=== PATIENT | female | born 1990 | race American Indian/Alaskan Native ===

== ENCOUNTER 2017-03-17 11:59 | Emergency (ER) | payer MEDICAID ==
[2017-03-17 12:26] VITALS: BP 135/76
[2017-03-17 12:52] LABS: Basophils % (Auto) 0.8 % (0.0-1.8); Eosinophils % (Auto) 3.9 % (0.0-4.3); Hematocrit 39.2 % (30.3-42.9); Hemoglobin 12.7 gm/dl (10.1-14.3); Mean Corpuscular HGB Conc 32 % (30-34); Mean Corpuscular Hemoglobin 28 pg (28-32); Mean Corpuscular Volume 86 fl (79-97); Platelet Count 291 K/mm3 (140-440); Red Blood Count 4.54 M/mm3 (3.65-5.03); Red Cell Distribution Width 13.3 % (13.2-15.2)
[2017-03-17 13:12] LABS: Alanine Aminotransferase 10 units/L (7-56); Albumin 3.9 g/dL (3.9-5); Albumin/Globulin Ratio 1.1 %; Alkaline Phosphatase 38 units/L (35-129); Anion Gap 17 mmol/L; Blood Urea Nitrogen 6 mg/dL (7-17); Calcium 8.8 mg/dL (8.4-10.2); Carbon Dioxide 23 mmol/L (22-30); Glucose 81 mg/dL (65-100); Lipase 39 units/L (13-60); Potassium 3.8 mmol/L (3.6-5.0); Sodium 137 mmol/L (137-145); Total Protein 7.3 g/dL (6.3-8.2)
[2017-03-17 13:44] LABS: Bacteria,Urine 1+ /HPF (Negative); Bilirubin,Urine NEG (Negative); Blood,Urine NEG (Negative); Ketones,Urine TR mg/dL (Negative); Leukocyte Esterase,Urine SM (Negative); Mucus,Urine FEW /HPF; Nitrite,Urine POS (Negative); Protein,Urine <15 mg/dL mg/dL (Negative); Urobilinogen,Urine < 2.0 mg/dL (<2.0)
--- NOTE | 2017-03-17 15:33 | Emergency Department Report ---
ED General Adult HPI - General Chief complaint: Abdominal Pain Stated complaint: ABD PAIN Time Seen by Provider: 03/17/17 14:32 Source: patient Mode of arrival: Ambulatory Limitations: No Limitations - History of Present Illness Initial comments: This is a 26-year-old female that presents here today stating "I am here only to get a test". Patient was seen by kelly nurse and she stated to fatimah nurse c/o abdominal pain. Patient stated she just wanted to see a provider for a test. Patient denies any abdominal pain, CP, SOB, numbness, tingling, fever, dysuria, polyuria, foul odor urine, vaginal discharge , vaginal bleeding, chills, headache. Patient does agree to nausea but denies vomiting. Associated symptoms of nausea includes 3-4 days. Patient stated LMP was 02/02/2017. Denies any vaginal bleeding or discharge. Denies significant PMH. MD Complaint: test with nausea -: Gradual, days(s) (3-4) Severity scale (0 -10): 0 Associated Symptoms: denies other symptoms. denies: confusion, chest pain, cough, diaphoresis, fever/chills, headaches, loss of appetite, malaise, nausea/ vomiting, rash, seizure, shortness of breath, syncope, weakness Treatments Prior to Arrival: none - Related Data Home Medications Medication Instructions Recorded Confirmed Last Taken Vitamin D3/Folic Acid [Dermacinrx 5,000 unit PO QDAY 07/26/16 07/26/16 Unknown Purefolix Tablet] risperiDONE [RisperDAL] 0.25 mg PO BID 07/26/16 07/26/16 Unknown traZODone [Desyrel] 50 mg PO QHS 07/26/16 07/26/16 Unknown Previous Rx's Medication Instructions Recorded Last Taken Type Vit W-Ca,Fe,FA(<1 mg) 1 each PO QDAY #30 tablet 07/26/16 Unknown Rx [ Vitamins] Nitrofurantoin Shelby/M-Cryst 100 mg PO Q12HR #10 capsule 03/17/17 Unknown Rx [Macrobid CAP] Allergies Allergy/AdvReac Type Severity Reaction Status Date / Time No Known Allergies Allergy Verified 07/26/16 07:51 ED Review of Systems ROS: Stated complaint: ABD PAIN Other details as noted in HPI Constitutional: denies: chills, fever Eyes: denies: eye pain, eye discharge, vision change ENT: denies: ear pain, throat pain Respiratory: denies: cough, shortness of breath, wheezing Cardiovascular: denies: chest pain, palpitations Endocrine: no symptoms reported Gastrointestinal: denies: abdominal pain, nausea, diarrhea Genitourinary: denies: urgency, dysuria, discharge Musculoskeletal: denies: back pain, joint swelling, arthralgia Skin: denies: rash, lesions Neurological: denies: headache, weakness, paresthesias Psychiatric: denies: anxiety, depression Hematological/Lymphatic: denies: easy bleeding, easy bruising ED Past Medical Hx - Past Medical History Previous Medical History?: Yes Hx Psychiatric Treatment: Yes (BIPOLAR / SCHIZOPHRENIA / DEPRESSION) - Surgical History Past Surgical History?: No - Social History Smoking Status: Current Every Day Smoker Substance Use Type: Alcohol, Marijuana - Medications Home Medications: Home Medications Medication Instructions Recorded Confirmed Last Taken Type Vit W-Ca,Fe,FA(<1 mg) 1 each PO QDAY #30 tablet 07/26/16 Unknown Rx [ Vitamins] Vitamin D3/Folic Acid [Dermacinrx 5,000 unit PO QDAY 07/26/16 07/26/16 Unknown History Purefolix Tablet] risperiDONE [RisperDAL] 0.25 mg PO BID 07/26/16 07/26/16 Unknown History traZODone [Desyrel] 50 mg PO QHS 07/26/16 07/26/16 Unknown History Nitrofurantoin Shelby/M-Cryst 100 mg PO Q12HR #10 capsule 03/17/17 Unknown Rx [Macrobid CAP] ED Physical Exam - General Limitations: No Limitations General appearance: alert, in no apparent distress - Head Head exam: Present: atraumatic, normocephalic. Absent: normal inspection - Eye Eye exam: Present: normal appearance, PERRL, EOMI. Absent: scleral icterus, conjunctival injection, nystagmus, periorbital swelling, periorbital tenderness - ENT ENT exam: Present: normal exam, normal orophraynx, mucous membranes moist, TM's normal bilaterally, normal external ear exam - Neck Neck exam: Present: normal inspection, full ROM. Absent: tenderness, meningismus, lymphadenopathy, thyromegaly - Respiratory Respiratory exam: Present: normal lung sounds bilaterally. Absent: respiratory distress, wheezes, rales, rhonchi, stridor, chest wall tenderness, accessory muscle use, decreased breath sounds, prolonged expiratory - Cardiovascular Cardiovascular Exam: Present: regular rate, normal rhythm, normal heart sounds. Absent: bradycardia, tachycardia, irregular rhythm, systolic murmur, diastolic murmur, rubs, gallop - GI/Abdominal GI/Abdominal exam: Present: soft, normal bowel sounds. Absent: distended, tenderness, guarding, rebound, rigid, diminished bowel sounds, hyperactive bowel sounds, hypoactive bowel sounds, organomegaly, mass, bruit, pulsatile mass , hernia - Expanded GI/Abdominal Exam Expanded GI/Abdominal exam: Absent: psoas sign, obturator sign, heel tap sign, Sanchez's sign, Rovsing's sign, tenderness at Mcburney's Point, ascites - Extremities Exam Extremities exam: Present: normal inspection, full ROM, normal capillary refill. Absent: tenderness, pedal edema, joint swelling, calf tenderness - Back Exam Back exam: Present: normal inspection, full ROM. Absent: tenderness, CVA tenderness (R), CVA tenderness (L), muscle spasm, paraspinal tenderness, vertebral tenderness, rash noted - Neurological Exam Neurological exam: Present: alert, oriented X3, CN II-XII intact, normal gait, reflexes normal - Psychiatric Psychiatric exam: Present: normal affect, normal mood - Skin Skin exam: Present: warm, dry, intact, normal color. Absent: rash ED Course Vital Signs 03/17/17 12:21 Temperature 98.3 F Pulse Rate 84 Respiratory 20 Rate Blood Pressure 135/76 O2 Sat by Pulse 100 Oximetry - Reevaluation(s) Reevaluation #1: 03/17/17 15:43 Patient is with family member and laughing. No signs of distress noted. ED Medical Decision Making - Lab Data Result diagrams: 03/17/17 12:36 03/17/17 12:36 - Medical Decision Making Ed course: This is a 26-year-old female that presents for a test 1- after my interview with patient, Patient stated to me that she does not have abd pain or vomiting. She does have slight nausea that is intermittent and believes she is and only wants a test. 2- Prior to my interview, a CBC, BMP, UA, and pergnancy test has been obtained with normal findings. 3- Pt was instructed to f/u with her PCP in 3-5 days 4- at time time of discharge, the patient does not seem toxic or ill in appearance. No acute signs of distress noted. Patient agrees to discharge treatment plan of care. No further questions noted by the patient. 5- UA shows slight UTI due to positive Nitrate, Bacteria, Ketones, and Leukocyte. Pt received Macrobid x7 days. Critical care attestation.: If time is entered above; I have spent that time in minutes in the direct care of this critically ill patient, excluding procedure time. ED Disposition Clinical Impression: test negative UTI (urinary tract infection) Qualifiers: Urinary tract infection type: site unspecified Hematuria presence: without hematuria Qualified Code(s): N39.0 - Urinary tract infection, site not specified Disposition: TO HOME OR SELFCARE Is pt being admited?: No Does the pt Need Aspirin: No Condition: Stable Instructions: Urinary Tract Infection in Women (ED) Additional Instructions: Take full course of antibiotics as prescribed. Follow-up with your primary care doctor in 3-5 days Prescriptions: Nitrofurantoin Shelby/M-Cryst [Macrobid CAP] 100 mg PO Q12HR #10 capsule Referrals: PRIMARY CAREMD [Primary Care Provider] - 3-5 Days AKOSUA MENDOZA JR, MD [Staff Physician] - 3-5 Days [facility] [Outside] - 3-5 Days [facility] [Outside] - 3-5 Days Forms: Work/School Release Form(ED)
== END 2017-03-17 16:40 | disposition home or self-care (01) ==
LOC: ED 11:59
DX: N39.0 Urinary tract infection, site not specified (principal); F31.9 Bipolar disorder, unspecified; F20.9 Schizophrenia, unspecified; F17.210 Nicotine dependence, cigarettes, uncomplicated; F12.90 Cannabis use, unspecified, uncomplicated
CPT/HCPCS: 36415; 80053; 81001; 81025; 83690; 85025; 87076; 87086; 87186; 99283

== ENCOUNTER 2017-07-05 11:38 | Outpatient (CLI) | payer MEDICAID ==
[2017-07-05 13:37] VITALS: BP 122/72
[2017-07-05 13:40] LABS: Bilirubin,Urine NEG (Negative); Blood,Urine NEG (Negative); Ketones,Urine NEG (Negative); Leukocyte Esterase,Urine NEG (Negative); Nitrite,Urine NEG (Negative); Protein,Urine <15 mg/dL mg/dL (Negative); Urobilinogen,Urine < 2.0 mg/dL (<2.0)
--- NOTE | 2017-07-05 13:44 | Event Note ---
Date: 07/05/17 (pt c/o pain left side and upper left leg) Pt presents to Triage with c/o left side pain predominantly left upper leg. No ctx FHTs Doppler 150. Large painful possible abscess noted on left upper leg/groin Approx 6-8cm in size Consulted with Will transport pt to ED for evaluation
[2017-07-05] MEDS ORDERED: LACTATED RINGERS 1,000 ML IV ONE (15:00)
== END 2017-07-05 18:50 | disposition home or self-care (01) ==
LOC: TRG 11:38
PROVIDERS: ATTEND Obstetrics & Gynecology
DX: O26.892 Other specified pregnancy related conditions, second trimester (principal); M79.605 Pain in left leg; O47.02 False labor before 37 completed weeks of gestation, second trimester; Z3A.22 22 weeks gestation of pregnancy
CPT/HCPCS: 81001

== ENCOUNTER 2017-07-05 14:45 | Emergency (ER) | payer MEDICAID ==
[2017-07-05 16:22] VITALS: BP 119/77
[2017-07-05 17:08] LABS: Basophils % (Auto) 0.3 % (0.0-1.8); Eosinophils % (Auto) 1.4 % (0.0-4.3); Hematocrit 37.4 % (30.3-42.9); Hemoglobin 12.5 gm/dl (10.1-14.3); Mean Corpuscular HGB Conc 33 % (30-34); Mean Corpuscular Hemoglobin 29 pg (28-32); Mean Corpuscular Volume 86 fl (79-97); Platelet Count 269 K/mm3 (140-440); Red Blood Count 4.33 M/mm3 (3.65-5.03); Red Cell Distribution Width 12.7 % (13.2-15.2); White Blood Count 10.9 K/mm3 (4.5-11.0)
[2017-07-05 17:17] LABS: BUN/Creatinine Ratio 13; Blood Urea Nitrogen 5 mg/dL (7-17); Calcium 8.8 mg/dL (8.4-10.2); Carbon Dioxide 22 mmol/L (22-30); Glucose 78 mg/dL (65-100); Sodium 136 mmol/L (137-145)
[2017-07-05 17:18] LABS: Anion Gap 18 mmol/L; Chloride 99.9 mmol/L (98-107); Potassium 4.1 mmol/L (3.6-5.0)
== END 2017-07-05 19:39 | disposition left against medical advice (07) ==
LOC: ED 14:45
DX: R10.9 Unspecified abdominal pain (principal); Z53.21 Procedure and treatment not carried out due to patient leaving prior to being seen by health care provider
CPT/HCPCS: 36415; 80048; 85025; 87086

== ENCOUNTER 2017-11-02 13:31 | Inpatient (IN) | payer MEDICAID ==
[2017-11-02] MEDS ORDERED: PHENERGAN PO PRN (14:20)
[2017-11-02] MEDS ORDERED: STADOL IV PRN (14:20)
[2017-11-02] MEDS ORDERED: SUBLIMAZE IV PRN (14:20)
[2017-11-02] MEDS ORDERED: ZOFRAN IV PRN (14:20)
[2017-11-02] MEDS ORDERED: MINERAL OIL PO PRN (14:20)
[2017-11-02] MEDS ORDERED: ePHEDrine SULFATE IV PRN (14:20)
[2017-11-02] MEDS ORDERED: BRETHINE SUB-Q PRN (14:20)
--- NOTE | 2017-11-02 14:32 | History and Physical Report ---
History of Present Illness Date of examination: 11/02/17 Chief complaint: SROM before active labor, SROM @ 1120 today History of present illness: EDC Confirmation: 11/06/2017 Past History : 2 Para: 0 Aborta: 1 Spont. Ab: 1 # 1 Delivery date: 10/03/2016 Delivery type: SAB Past Medical History: Reviewed history and no changes required: Negative Past Medical History Past Surgical History: Reviewed history and no changes required: negative Past Medical History Anesthesia Complications: negative Anemia: negative Autoimmune Disorder: negative Bleeding Disorder: negative Blood Transfusions: negative Breast Disease: negative Diabetes: negative Heart Disease: negative Hypertension: negative Hepatitis/Liver Disease: negative Kidney Disease/UTI: negative Neurologic/Epilepsy/Migraines: negative Phlebitis/Varicosities: negative Psychiatric: negative Pulmonary Disease/Asthma: negative Thyroid Disease: negative Hospitalizations: negative Surgery (Non-clinical care manager): negative Infection History Hx of STD: none HIV Risk Eval: low risk Hepatitis B Risk Eval: low risk Personal hx. of genital herpes: no Partner hx. of genital herpes: no Varicella/Chicken Pox Status: Previous Disease TB Risk: no Genetic History Congenital Heart Defect: Mom: no Dad: no Bharath Disease: Mom: no Dad: no Thalassemia Mom: no Dad: no Neural Tube Defect Mom: no Dad: no Down's Syndrome Mom: no Dad: no Mike-Sachs Mom: no Dad: no Sickle Cell Disease/Trait Mom: no Dad: no Hemophilia Mom: no Dad: no Muscular Dystrophy Mom: no Dad: no Cystic Fibrosis Mom: no Dad: no Farnsworth Chorea Mom: no Dad: no Mental Retardation Mom: no Dad: no Fragile X Mom: no Dad: no Other Genetic/Chromosomal Disorder Mom: no Dad: no Child w/other defect Mom: no Dad: no Enviromental Exposures Xray Exposure: no Medication, drug, or alcohol use since LMP: no Chemical/Other Exposure: no Exposure to Cat Liter: no Hx of Parvovirus (Fifth Disease): no Active Medications (reviewed today): PLUS 27-1 MG TABS ( VIT-FE FUMARATE-FA) 1 po IBUPROFEN 600 MG TABS (IBUPROFEN) 1 po q 4 hrs as directed prn ULTRAM 50 MG TABS (TRAMADOL HCL) 1-2 po q 6hrs prn pain Current Allergies (reviewed today): No known allergies Past History Past Medical History: other (see HPI) Past Surgical History: other (see HPI) - Obstetrical History Expected Date of Delivery: 11/06/17 Actual Gestation: 39 Week(s) 4 Day(s) : 2 Para: 0 Hx # Term Pregnancies: 0 Number of Pregnancies: 0 Spontaneous Abortions: 1 Induced : 0 Number of Living Children: 0 Medications and Allergies Allergies Allergy/AdvReac Type Severity Reaction Status Date / Time No Known Allergies Allergy Verified 07/26/16 07:51 Home Medications Medication Instructions Recorded Confirmed Last Taken Type Vit Calc,Iron,Folic 1 each PO QDAY #30 tablet 07/26/16 11/02/17 Unknown Rx [ Vitamins] Active Meds: Active Medications Butorphanol Tartrate (Stadol) 2 mg IV Q2H PRN PRN Reason: Pain , Severe (7-10) Ephedrine Sulfate (Ephedrine Sulfate) 10 mg IV Q2M PRN PRN Reason: Hypotension Fentanyl (Sublimaze) 100 mcg IV Q2H PRN PRN Reason: Labor Pain Lactated Ringer's (Lactated Ringers) 1,000 mls @ 125 mls/hr IV DIRECT BERNIE Oxytocin/Sodium Chloride (Pitocin/Ns 20 Unit/1000ml Drip) 20 units in 1,000 mls @ 125 mls/hr IV DIRECT BERNIE Oxytocin/Sodium Chloride (Pitocin/Ns 30 Unit/500ml) 30 units in 500 mls @ 4 mls /hr IV TITR BERNIE PRN Reason: Protocol Lidocaine (Xylocaine 2%) 20 ml INFILTRATI ONCE ONE Stop: 11/02/17 14:21 Mineral Oil (Mineral Oil) 30 ml PO QHS PRN PRN Reason: Constipation Ondansetron HCl (Zofran) 4 mg IV Q8H PRN PRN Reason: Nausea And Vomiting Promethazine HCl (Phenergan) 25 mg PO Q6H PRN PRN Reason: Nausea And Vomiting Terbutaline Sulfate (Brethine) 0.25 mg SUB-Q ONCE PRN PRN Reason: Hyperstimulation/Hypertonicity Review of Systems All systems: negative - Vital Signs Vital signs: Vital Signs Temp Resp 98.3 F 11/02/17 13:51 11/02/17 13:51 Temp Pulse Resp BP Pulse Ox 98.3 F 11/02/17 13:51 11/02/17 13:51 - Physical Exam Breasts: Positive: normal Cardiovascular: Regular rate Lungs: Positive: Clear to auscultation, Normal air movement Abdomen: Positive: normal appearance, soft, normal bowel sounds Genitourinary (Female): Positive: normal external genitalia, normal perenium Vulva: both: normal Vagina: Positive: normal moisture (SROM - clear fluid) Uterus: Positive: normal size, normal contour Anus/Rectum: Positive: normal perianal skin Extremities: Positive: normal Deep Tendon Reflex Grade: Normal +2 - Obstetrical FHR: auscultation normal Uterine Contraction Monitor Mode: External Uterine Contraction Pattern: Irregular Uterine Tone Measurement Phase: Contraction Uterine Contraction Intensity: Mild Results Result Diagrams: 11/02/17 15:08 All other labs normal. Patient: ANA ROSA MCCULLOUGH ID: [id number] Note: All result statuses are Final unless otherwise noted. Tests: (1) Profile I ([id number]) Order Note: Clinical Information: SRC:UR HBsAg Screen Negative Negative *1 Rubella Antibodies, IgG 1.14 index Immune >0.99 *2 Non-immune <0.90 Equivocal 0.90 - 0.99 Immune >0.99 ABO Grouping B *3 Rh Factor Positive *4 Please note: Prior records for this patient's ABO / Rh type are not available for additional verification. Antibody Screen Negative Negative *5 RPR Non Reactive Non Reactive *6 WBC 6.6 x10E3/uL 3.4-10.8 *7 RBC 4.24 x10E6/uL 3.77-5.28 *8 Hemoglobin 11.8 g/dL 11.1-15.9 *9 Hematocrit 37.2 % 34.0-46.6 *10 MCV 88 fL 79-97 *11 MCH 27.8 pg 26.6-33.0 *12 MCHC 31.7 g/dL 31.5-35.7 *13 RDW 13.5 % 12.3-15.4 *14 Platelets 276 x10E3/uL 150-379 *15 Neutrophils 66 % *16 Lymphs 24 % *17 Monocytes 6 % *18 Eos 3 % *19 Basos 1 % *20 ! Immature Cells <No Reported Value> *21 Neutrophils (Absolute) 4.4 x10E3/uL 1.4-7.0 *22 Lymphs (Absolute) 1.6 x10E3/uL 0.7-3.1 *23 Monocytes(Absolute) 0.4 x10E3/uL 0.1-0.9 *24 Eos (Absolute) 0.2 x10E3/uL 0.0-0.4 *25 Baso (Absolute) 0.0 x10E3/uL 0.0-0.2 *26 ! Immature Granulocytes 0 % *27 ! Immature Grans (Abs) 0.0 x10E3/uL 0.0-0.1 *28 ! NRBC <No Reported Value> *29 Hematology Comments: <No Reported Value> *30 Tests: (2) Cystic Fibrosis Profile ([id number]) ! CF, Screen Comment: *31 RESULTS: Negative for 32 mutations analyzed INTERPRETATION: This individual is negative for the mutations analyzed. This negative result may need further interpretation depending on the clinical indication. This result reduces but does not eliminate the risk to be a CF carrier. COMMENTS: The detection rate varies with ethnicity and is listed below. The presence of an undetected mutation in the CF gene cannot be ruled out. In the absence of family history, the remaining risk that a person with a negative result could have at least one CF mutation is listed in the table. If there is a family history of CF, these risk figures do not apply. As detailed information regarding this individual's family history would permit a more accurate assessment of this individual's risk to be a carrier of cystic fibrosis, please contact [facility] at for a revised report. Mutation Detection Detection rates are based on mutation Rates among Ethnic frequencies in patients affected with Groups cystic fibrosis. Among individuals with an atypical or mild presentation (e.g. congenital absence of the vas deferens, pancreatitis) detection rates may vary from those provided here: Carrier risk reduction when no family history Detection Ethnicity Rate Ashkenazi 10/18 to 97% Catholic 10/17 to 90% (non-) -Tuvaluan to 69% to 73% to 55% This interpretation is based on the clinical and family relationship information provided and the current understanding of the molecular genetics of this condition. MUTATIONS ANALYZED: G85E V520F H0384G 2183AA to G R117H G542X I7867W 2184delA R334W S549N 394delTT 2789+5G to A R347H S549R 621+1G to T 3120+1G to A R347P G551D 711+1G to T 3659delC A455E R553X 1078delT 3849+10kbC to T [id number] R560T 1717-1G to A 3876delA EhjnqN794 H1310J 1898+1G to A 3905insT METHODS/LIMITATIONS: DNA is isolated from the sample and tested for the 32 CF mutations on the [employer] Platform ([employer]). Regions of the CFTR gene are amplified enzymatically and subjected to a solution-phase multiplex allele-specific primer extension with subsequent hybridization to a bead array and fluorescence detection. Polymorphisms F508C, I506V and I507V are included in this panel to rule out false positive [id number] homozygotes. Reflex testing of 5T is included in the panel for R117H interpretation. False positive or negative results may occur for reasons that include genetic variants, blood transfusions, bone marrow transplantation, erroneous representation of family relationships or contamination of a sample with maternal cells. REFERENCES: 1. Updates on Carrier Screening for Cystic Fibrosis. (2011) Am J Ob Gynecol 117(4):7189-9366 2. Jesús, et al. (2004) Kelly Med 6:387-91 3. Valentina, et al. (2002) Kelly Med 4:379-391 4. Preconception and carrier screening for cystic fibrosis: (2001)ACOG.ACMG publication Results Released By: Aron Diaz M.D., Sonar Technician Report Released By: Aron Diaz M.D., Sonar Technician ! Comment: SPRCS *32 The assay provides information intended to be used for carrier screening in adults of reproductive age, as an aid in screening, and as a confirmatory test for another medically established diagnosis in newborns and children. The test is not indicated for use in diagnostic testing, pre-implantation screening, or for any stand-alone diagnostic purposes without confirmation by another medically established diagnostic product or procedure. Tests: (3) HB Solu + Rflx Frac (607000) Hemoglobin (Hgb) Solubility Negative Negative *33 Tests: (4) Panel 911759 (810006) HIV Screen 4th Generation wRfx Non Reactive Non Reactive *34 Tests: (5) HCV Ab w/Rflx to Verification (624113) ! HCV Ab <0.1 s/co ratio 0.0-0.9 *35 Tests: (6) Comment: ([id number]) ! Comment: SPRCS *36 Non reactive HCV antibody screen is consistent with no HCV infection, unless recent infection is suspected or other evidence exists to indicate HCV infection. Tests: (7) Urine Culture, Routine (106171) Urine Culture, Routine Final report *37 Tests: (8) Result ([id number]) ! Result 1 MUG *38 Mixed urogenital mikki tient: ANA ROSA MCCULLOUGH ID: [id number] Note: All result statuses are Final unless otherwise noted. Tests: (1) Chlamydia/GC Amplification ([id number]) Order Note: Clinical Information: SRC:VR SRC:UR Chlamydia trachomatis, REAGAN Negative Negative *1 Neisseria gonorrhoeae, REAGAN Negative Negative *2 Tests: (2) Strep Gp B REAGAN ([id number]) ! Strep Gp B REAGAN Negative Negative *3 Assessment and Plan 27y/o @ 39+3 arrived with SROM - clear fluid, no signs of labor. SVE unchanged from last exam in office. Plan for cervidil overnight and pitocin in AM. GBS neg, CAT 1 tracing. complicated by obesity, right pylectasis and circumvallate placenta. Plan reviewed with patient and she verbalizes understanding. - Patient Problems (1) pyelectasis Current Visit: Yes Status: Acute Plan to address problem: right sided pylectasis pt is to f/u with ped urology after delivery (2) Circumvallate placenta, third trimester Current Visit: Yes Status: Acute (3) Premature rupture of membranes Current Visit: Yes Status: Acute Qualifiers: PROM onset of labor timing: unspecified duration between rupture of membranes and onset of labor PROM gestational age: full term Qualified Code( s): O42.92 - Full-term premature rupture of membranes, unspecified as to length of time between rupture and onset of labor (4) 39 weeks gestation of Current Visit: Yes Status: Acute
[2017-11-02] MEDS ORDERED: XYLOCAINE 2% INFILTRATI ONE (15:00)
[2017-11-02] MEDS ORDERED: PITOCin/NS 30 UNIT/500ML 30 UNITS/500 ML BAG IV SCH (15:00)
[2017-11-02 15:30] LABS: Hematocrit 37.3 % (30.3-42.9); Hemoglobin 12.2 gm/dl (10.1-14.3); Mean Corpuscular HGB Conc 33 % (30-34); Mean Corpuscular Hemoglobin 27 pg (28-32); Mean Corpuscular Volume 84 fl (79-97); Platelet Count 299 K/mm3 (140-440); Red Blood Count 4.45 M/mm3 (3.65-5.03); Red Cell Distribution Width 13.4 % (13.2-15.2)
[2017-11-02] MEDS ORDERED: AMBIEN PO PRN (16:43)
[2017-11-02] MEDS: LACTATED RINGERS 1,000 ML IV SCH ×2 (16:49→23:01)
[2017-11-02] MEDS ORDERED: CERVIDIL VG ONE (18:00)
[2017-11-02] MEDS ORDERED: TYLENOL PO PRN (23:05)
[2017-11-03] MEDS ORDERED: PITOCin/NS 30 UNIT/500ML 30 UNITS/500 ML BAG IV SCH (06:00)
[2017-11-03] MEDS: LACTATED RINGERS 1,000 ML IV SCH ×2 (09:13→14:32)
--- NOTE | 2017-11-03 10:50 | Progress Note ---
Assessment and Plan Patient resting on right side, c/o feeling painless pressure abdomen. Very difficult to trace ctx with external toco d/t obesity. Plan discussed to place [facility] for more accurate monitoring and pitocin titration. head not well applied to cervix, still -3. Pitocin currently @ 16mU. No s/s infection - fluid odorless, no fever, no abd tenderness. FHT cat 1. Plan to continue increasing pitocin for adequate labor. plan discussed with patient and family, all questions addressed. Dr Bennett aware of patient's status. - Patient Problems (1) pyelectasis Current Visit: Yes Status: Acute (2) Circumvallate placenta, third trimester Current Visit: Yes Status: Acute (3) Premature rupture of membranes Current Visit: Yes Status: Acute Qualifiers: PROM onset of labor timing: unspecified duration between rupture of membranes and onset of labor PROM gestational age: full term Qualified Code( s): O42.92 - Full-term premature rupture of membranes, unspecified as to length of time between rupture and onset of labor (4) 39 weeks gestation of Current Visit: Yes Status: Acute Subjective - Subjective Date of service: 11/03/17 Principal diagnosis: IUP @ 39+4, PPROM 11/02/17 @ 1120 Interval history: EDC Confirmation: 11/06/2017 Past History : 2 Para: 0 Aborta: 1 Spont. Ab: 1 # 1 Delivery date: 10/03/2016 Delivery type: SAB Past Medical History: Reviewed history and no changes required: Negative Past Medical History Past Surgical History: Reviewed history and no changes required: negative Past Medical History Anesthesia Complications: negative Anemia: negative Autoimmune Disorder: negative Bleeding Disorder: negative Blood Transfusions: negative Breast Disease: negative Diabetes: negative Heart Disease: negative Hypertension: negative Hepatitis/Liver Disease: negative Kidney Disease/UTI: negative Neurologic/Epilepsy/Migraines: negative Phlebitis/Varicosities: negative Psychiatric: negative Pulmonary Disease/Asthma: negative Thyroid Disease: negative Hospitalizations: negative Surgery (Non-parking 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 of genital herpes: no Partner hx. of genital herpes: no Varicella/Chicken Pox Status: Previous Disease TB Risk: no Genetic History Congenital Heart Defect: Mom: no Dad: no Bharath Disease: Mom: no Dad: no Thalassemia Mom: no Dad: no Neural Tube Defect Mom: no Dad: no Down's Syndrome Mom: no Dad: no Mike-Sachs Mom: no Dad: no Sickle Cell Disease/Trait Mom: no Dad: no Hemophilia Mom: no Dad: no Muscular Dystrophy Mom: no Dad: no Cystic Fibrosis Mom: no Dad: no [place] Chorea Mom: no Dad: no Mental Retardation Mom: no Dad: no Fragile X Mom: no Dad: no Other Genetic/Chromosomal Disorder Mom: no Dad: no Child w/other defect Mom: no Dad: no Enviromental Exposures Xray Exposure: no Medication, drug, or alcohol use since LMP: no Chemical/Other Exposure: no Exposure to Cat Liter: no Hx of Parvovirus (Fifth Disease): no Active Medications (reviewed today): PLUS 27-1 MG TABS ( VIT-FE FUMARATE-FA) 1 po IBUPROFEN 600 MG TABS (IBUPROFEN) 1 po q 4 hrs as directed prn ULTRAM 50 MG TABS (TRAMADOL HCL) 1-2 po q 6hrs prn pain Current Allergies (reviewed today): No known allergies Patient reports: loss of fluid, movement normal, contractions, no new complaints, no vaginal bleeding Objective - Vital Signs Vital Signs: Vital Signs - 12hr 11/02/17 11/02/17 11/02/17 22:58 23:03 23:27 Temperature 97.2 F L Pulse Rate 98 H 98 H Respiratory 18 18 Rate Blood Pressure 115/55 Blood Pressure 115/55 [Right] O2 Sat by Pulse Oximetry 11/02/17 11/03/17 11/03/17 23:33 01:33 01:34 Temperature 98.5 F Pulse Rate 103 H 98 H Respiratory 20 Rate Blood Pressure Blood Pressure [Right] O2 Sat by Pulse 98 98 Oximetry 11/03/17 11/03/17 11/03/17 01:35 02:51 02:56 Temperature Pulse Rate 97 H 89 100 H Respiratory Rate Blood Pressure 128/60 Blood Pressure [Right] O2 Sat by Pulse 94 95 Oximetry 11/03/17 11/03/17 11/03/17 03:01 03:06 03:11 Temperature Pulse Rate 102 H 99 H 101 H Respiratory Rate Blood Pressure Blood Pressure [Right] O2 Sat by Pulse 95 96 97 Oximetry 11/03/17 11/03/17 11/03/17 03:16 03:21 03:24 Temperature 98.3 F Pulse Rate 98 H 97 H 96 H Respiratory 20 Rate Blood Pressure 113/57 Blood Pressure [Right] O2 Sat by Pulse 97 96 Oximetry 11/03/17 11/03/17 11/03/17 03:26 03:31 03:36 Temperature Pulse Rate 103 H 95 H 99 H Respiratory Rate Blood Pressure Blood Pressure [Right] O2 Sat by Pulse 96 96 97 Oximetry 11/03/17 11/03/17 11/03/17 03:41 03:46 03:51 Temperature Pulse Rate 97 H 111 H 96 H Respiratory Rate Blood Pressure Blood Pressure [Right] O2 Sat by Pulse 97 98 98 Oximetry 11/03/17 11/03/17 11/03/17 03:56 04:01 04:06 Temperature Pulse Rate 103 H 89 88 Respiratory Rate Blood Pressure Blood Pressure [Right] O2 Sat by Pulse 96 97 98 Oximetry 11/03/17 11/03/17 11/03/17 04:11 04:16 04:21 Temperature Pulse Rate 84 89 89 Respiratory Rate Blood Pressure Blood Pressure [Right] O2 Sat by Pulse 98 98 97 Oximetry 11/03/17 11/03/17 11/03/17 04:26 04:31 04:36 Temperature Pulse Rate 88 88 85 Respiratory Rate Blood Pressure Blood Pressure [Right] O2 Sat by Pulse 97 98 97 Oximetry 11/03/17 11/03/17 11/03/17 04:41 04:46 04:51 Temperature Pulse Rate 90 90 91 H Respiratory Rate Blood Pressure Blood Pressure [Right] O2 Sat by Pulse 97 97 97 Oximetry 11/03/17 11/03/17 11/03/17 04:56 05:01 05:06 Temperature Pulse Rate 90 91 H 98 H Respiratory Rate Blood Pressure Blood Pressure [Right] O2 Sat by Pulse 96 97 96 Oximetry 11/03/17 11/03/17 11/03/17 05:11 05:15 05:16 Temperature Pulse Rate 90 92 H 98 H Respiratory Rate Blood Pressure Blood Pressure [Right] O2 Sat by Pulse 98 93 98 Oximetry 11/03/17 11/03/17 11/03/17 05:21 05:26 05:31 Temperature Pulse Rate 101 H 98 H 92 H Respiratory Rate Blood Pressure Blood Pressure [Right] O2 Sat by Pulse 98 98 98 Oximetry 11/03/17 11/03/17 11/03/17 05:36 05:41 06:22 Temperature 98.4 F Pulse Rate 98 H 97 H Respiratory Rate Blood Pressure Blood Pressure [Right] O2 Sat by Pulse 100 98 Oximetry 11/03/17 11/03/17 11/03/17 06:43 06:44 08:56 Temperature Pulse Rate 87 86 109 H Respiratory Rate Blood Pressure 104/69 125/81 Blood Pressure [Right] O2 Sat by Pulse 98 98 Oximetry 11/03/17 11/03/17 11/03/17 09:15 09:20 09:25 Temperature Pulse Rate 99 H 102 H 109 H Respiratory Rate Blood Pressure 129/66 Blood Pressure [Right] O2 Sat by Pulse 98 99 98 Oximetry 11/03/17 11/03/17 11/03/17 09:26 09:30 09:35 Temperature Pulse Rate 111 H 102 H 103 H Respiratory Rate Blood Pressure 128/65 Blood Pressure [Right] O2 Sat by Pulse 97 98 Oximetry 11/03/17 11/03/17 11/03/17 09:40 09:45 09:50 Temperature Pulse Rate 97 H 95 H 96 H Respiratory Rate Blood Pressure Blood Pressure [Right] O2 Sat by Pulse 97 97 96 Oximetry 11/03/17 11/03/17 11/03/17 09:55 10:00 10:05 Temperature Pulse Rate 109 H 97 H 104 H Respiratory Rate Blood Pressure 127/77 Blood Pressure [Right] O2 Sat by Pulse 98 97 96 Oximetry 11/03/17 11/03/17 11/03/17 10:10 10:15 10:19 Temperature Pulse Rate 109 H 99 H 105 H Respiratory Rate Blood Pressure Blood Pressure [Right] O2 Sat by Pulse 95 97 88 Oximetry 11/03/17 11/03/17 11/03/17 10:20 10:25 10:26 Temperature Pulse Rate 97 H 105 H 109 H Respiratory Rate Blood Pressure 121/62 Blood Pressure [Right] O2 Sat by Pulse 98 96 Oximetry 11/03/17 11/03/17 11/03/17 10:30 10:35 10:40 Temperature Pulse Rate 105 H 106 H 91 H Respiratory Rate Blood Pressure Blood Pressure [Right] O2 Sat by Pulse 97 96 98 Oximetry - Exam Breasts: normal Cardiovascular: Regular rate Lungs: Clear to auscultation, Normal air movement Abdomen: Present: normal appearance, soft Vulva: both: normal Uterus: Present: normal FHR: auscultation normal, category 1 Uterine Contraction Monitor Mode: Internal Cervical Dilatation: 3.5 (Moderate amount of clear fluid) Cervical Effacement Percentage: 60 station: -3 Uterine Contraction Frequency (min): 3-4 Uterine Contraction Duration: 60 Uterine Contraction Pattern: Regular Uterine Tone Measurement Phase: Contraction Uterine Contraction Intensity: Moderate Extremities: normal - Labs Labs: Abnormal Labs 11/02/17 15:08 MCH 27 L Laboratory Results - last 24 hr 11/02/17 11/02/17 15:08 15:08 WBC 9.5 RBC 4.45 Hgb 12.2 Hct 37.3 MCV 84 MCH 27 L MCHC 33 RDW 13.4 Plt Count 299 Blood Type B POSITIVE Antibody Screen Negative
[2017-11-03] MEDS ORDERED: Fluarix Quad 2017-2018(36 MOS+ IM ONE (12:00)
--- NOTE | 2017-11-03 12:49 | Progress Note ---
Assessment and Plan variables and earlies noted in fht, good variability. SVE unchanged from last exam. Encouraged patient to get epidural for relaxation and pain control. patient agreed. Discussed concerns r/t elevated station despite adequate labor. Discussed possibility of c/s if no change in the next few hours. no s/s infection - afebrile, clear odorless fluid. Patient and her mother verbalize understanding. - Patient Problems (1) pyelectasis Current Visit: Yes Status: Acute (2) Circumvallate placenta, third trimester Current Visit: Yes Status: Acute (3) Premature rupture of membranes Current Visit: Yes Status: Acute Qualifiers: PROM onset of labor timing: onset of labor more than 24 hours following rupture PROM gestational age: full term Qualified Code(s): O42.12 - Full- term premature rupture of membranes, onset of labor more than 24 hours following rupture (4) 39 weeks gestation of Current Visit: Yes Status: Acute Subjective - Subjective Date of service: 11/03/17 Principal diagnosis: IUP @ 39+4, PPROM 11/02/17 @ 1120 Interval history: EDC Confirmation: 11/06/2017 Past History : 2 Para: 0 Aborta: 1 Spont. Ab: 1 # 1 Delivery date: 10/03/2016 Delivery type: SAB Past Medical History: Reviewed history and no changes required: Negative Past Medical History Past Surgical History: Reviewed history and no changes required: negative Past Medical History Anesthesia Complications: negative Anemia: negative Autoimmune Disorder: negative Bleeding Disorder: negative Blood Transfusions: negative Breast Disease: negative Diabetes: negative Heart Disease: negative Hypertension: negative Hepatitis/Liver Disease: negative Kidney Disease/UTI: negative Neurologic/Epilepsy/Migraines: negative Phlebitis/Varicosities: negative Psychiatric: negative Pulmonary Disease/Asthma: negative Thyroid Disease: negative Hospitalizations: negative Surgery (Non-net lead 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 of genital herpes: no Partner hx. of genital herpes: no Varicella/Chicken Pox Status: Previous Disease TB Risk: no Genetic History Congenital Heart Defect: Mom: no Dad: no Bharath Disease: Mom: no Dad: no Thalassemia Mom: no Dad: no Neural Tube Defect Mom: no Dad: no Down's Syndrome Mom: no Dad: no Mike-Sachs Mom: no Dad: no Sickle Cell Disease/Trait Mom: no Dad: no Hemophilia Mom: no Dad: no Muscular Dystrophy Mom: no Dad: no Cystic Fibrosis Mom: no Dad: no [place] Chorea Mom: no Dad: no Mental Retardation Mom: no Dad: no Fragile X Mom: no Dad: no Other Genetic/Chromosomal Disorder Mom: no Dad: no Child w/other defect Mom: no Dad: no Enviromental Exposures Xray Exposure: no Medication, drug, or alcohol use since LMP: no Chemical/Other Exposure: no Exposure to Cat Liter: no Hx of Parvovirus (Fifth Disease): no Active Medications (reviewed today): PLUS 27-1 MG TABS ( VIT-FE FUMARATE-FA) 1 po IBUPROFEN 600 MG TABS (IBUPROFEN) 1 po q 4 hrs as directed prn ULTRAM 50 MG TABS (TRAMADOL HCL) 1-2 po q 6hrs prn pain Current Allergies (reviewed today): No known allergies Patient reports: loss of fluid, movement normal, contractions, no new complaints, no vaginal bleeding Objective - Vital Signs Vital Signs: Vital Signs - 12hr 11/03/17 11/03/17 11/03/17 01:33 01:34 01:35 Temperature 98.5 F Pulse Rate 98 H 97 H Respiratory 20 Rate Blood Pressure 128/60 O2 Sat by Pulse 98 Oximetry 11/03/17 11/03/17 11/03/17 02:51 02:56 03:01 Temperature Pulse Rate 89 100 H 102 H Respiratory Rate Blood Pressure O2 Sat by Pulse 94 95 95 Oximetry 11/03/17 11/03/17 11/03/17 03:06 03:11 03:16 Temperature Pulse Rate 99 H 101 H 98 H Respiratory Rate Blood Pressure O2 Sat by Pulse 96 97 97 Oximetry 11/03/17 11/03/17 11/03/17 03:21 03:24 03:26 Temperature 98.3 F Pulse Rate 97 H 96 H 103 H Respiratory 20 Rate Blood Pressure 113/57 O2 Sat by Pulse 96 96 Oximetry 11/03/17 11/03/17 11/03/17 03:31 03:36 03:41 Temperature Pulse Rate 95 H 99 H 97 H Respiratory Rate Blood Pressure O2 Sat by Pulse 96 97 97 Oximetry 11/03/17 11/03/17 11/03/17 03:46 03:51 03:56 Temperature Pulse Rate 111 H 96 H 103 H Respiratory Rate Blood Pressure O2 Sat by Pulse 98 98 96 Oximetry 11/03/17 11/03/17 11/03/17 04:01 04:06 04:11 Temperature Pulse Rate 89 88 84 Respiratory Rate Blood Pressure O2 Sat by Pulse 97 98 98 Oximetry 11/03/17 11/03/17 11/03/17 04:16 04:21 04:26 Temperature Pulse Rate 89 89 88 Respiratory Rate Blood Pressure O2 Sat by Pulse 98 97 97 Oximetry 11/03/17 11/03/17 11/03/17 04:31 04:36 04:41 Temperature Pulse Rate 88 85 90 Respiratory Rate Blood Pressure O2 Sat by Pulse 98 97 97 Oximetry 11/03/17 11/03/17 11/03/17 04:46 04:51 04:56 Temperature Pulse Rate 90 91 H 90 Respiratory Rate Blood Pressure O2 Sat by Pulse 97 97 96 Oximetry 11/03/17 11/03/17 11/03/17 05:01 05:06 05:11 Temperature Pulse Rate 91 H 98 H 90 Respiratory Rate Blood Pressure O2 Sat by Pulse 97 96 98 Oximetry 11/03/17 11/03/17 11/03/17 05:15 05:16 05:21 Temperature Pulse Rate 92 H 98 H 101 H Respiratory Rate Blood Pressure O2 Sat by Pulse 93 98 98 Oximetry 11/03/17 11/03/17 11/03/17 05:26 05:31 05:36 Temperature Pulse Rate 98 H 92 H 98 H Respiratory Rate Blood Pressure O2 Sat by Pulse 98 98 100 Oximetry 11/03/17 11/03/17 11/03/17 05:41 06:22 06:43 Temperature 98.4 F Pulse Rate 97 H 87 Respiratory Rate Blood Pressure O2 Sat by Pulse 98 98 Oximetry 11/03/17 11/03/17 11/03/17 06:44 08:56 09:15 Temperature Pulse Rate 86 109 H 99 H Respiratory Rate Blood Pressure 104/69 125/81 129/66 O2 Sat by Pulse 98 98 Oximetry 11/03/17 11/03/17 11/03/17 09:20 09:25 09:26 Temperature Pulse Rate 102 H 109 H 111 H Respiratory Rate Blood Pressure 128/65 O2 Sat by Pulse 99 98 Oximetry 11/03/17 11/03/17 11/03/17 09:30 09:35 09:40 Temperature Pulse Rate 102 H 103 H 97 H Respiratory Rate Blood Pressure O2 Sat by Pulse 97 98 97 Oximetry 11/03/17 11/03/17 11/03/17 09:45 09:50 09:55 Temperature Pulse Rate 95 H 96 H 109 H Respiratory Rate Blood Pressure O2 Sat by Pulse 97 96 98 Oximetry 11/03/17 11/03/17 11/03/17 10:00 10:05 10:10 Temperature Pulse Rate 97 H 104 H 109 H Respiratory Rate Blood Pressure 127/77 O2 Sat by Pulse 97 96 95 Oximetry 11/03/17 11/03/17 11/03/17 10:15 10:19 10:20 Temperature Pulse Rate 99 H 105 H 97 H Respiratory Rate Blood Pressure O2 Sat by Pulse 97 88 98 Oximetry 11/03/17 11/03/17 11/03/17 10:25 10:26 10:30 Temperature Pulse Rate 105 H 109 H 105 H Respiratory Rate Blood Pressure 121/62 O2 Sat by Pulse 96 97 Oximetry 11/03/17 11/03/17 11/03/17 10:35 10:40 10:45 Temperature 97.7 F Pulse Rate 106 H 91 H 102 H Respiratory 15 Rate Blood Pressure O2 Sat by Pulse 96 98 96 Oximetry 11/03/17 11/03/17 11/03/17 10:50 10:55 10:56 Temperature Pulse Rate 108 H 116 H 116 H Respiratory Rate Blood Pressure 118/73 O2 Sat by Pulse 96 97 Oximetry 11/03/17 11/03/17 11/03/17 11:00 11:05 11:10 Temperature Pulse Rate 106 H 107 H 103 H Respiratory Rate Blood Pressure O2 Sat by Pulse 96 98 97 Oximetry 11/03/17 11/03/17 11/03/17 11:15 11:20 11:25 Temperature Pulse Rate 111 H 109 H 103 H Respiratory Rate Blood Pressure O2 Sat by Pulse 97 97 96 Oximetry 11/03/17 11/03/17 11/03/17 11:26 11:30 11:35 Temperature Pulse Rate 100 H 105 H 100 H Respiratory Rate Blood Pressure 133/78 O2 Sat by Pulse 96 96 Oximetry 11/03/17 11/03/17 11/03/17 11:40 11:45 11:50 Temperature Pulse Rate 94 H 97 H 115 H Respiratory Rate Blood Pressure O2 Sat by Pulse 96 98 95 Oximetry 11/03/17 11/03/1718 11:55 11:57 12:00 Temperature Pulse Rate 96 H 107 H 116 H Respiratory Rate Blood Pressure 127/71 O2 Sat by Pulse 95 97 Oximetry 11/03/17 11/03/17 11/03/17 12:05 12:10 12:15 Temperature Pulse Rate 102 H 109 H 102 H Respiratory Rate Blood Pressure O2 Sat by Pulse 97 96 97 Oximetry 11/03/17 11/03/17 11/03/17 12:20 12:25 12:30 Temperature Pulse Rate 102 H 102 H 105 H Respiratory Rate Blood Pressure O2 Sat by Pulse 97 97 96 Oximetry 11/03/17 11/03/17 11/03/17 12:35 12:40 12:45 Temperature Pulse Rate 96 H 109 H 96 H Respiratory Rate Blood Pressure O2 Sat by Pulse 95 98 97 Oximetry - Exam Breasts: normal Cardiovascular: Regular rate Lungs: Clear to auscultation, Normal air movement Abdomen: Present: normal appearance Vulva: both: normal Uterus: Present: normal FHR: category 2 Uterine Contraction Monitor Mode: Internal Cervical Dilatation: 3.5 Cervical Effacement Percentage: 60 station: -3 Uterine Contraction Frequency (min): 2-3 Uterine Contraction Duration: 60 Uterine Contraction Pattern: Regular Uterine Tone Measurement Phase: Contraction Uterine Contraction Intensity: Moderate Uterine Tone Measurement (Intensity): 240 (MVU) Extremities: normal - Labs Labs: Abnormal Labs 11/02/17 15:08 MCH 27 L Laboratory Results - last 24 hr 11/02/17 11/02/17 15:08 15:08 WBC 9.5 RBC 4.45 Hgb 12.2 Hct 37.3 MCV 84 MCH 27 L MCHC 33 RDW 13.4 Plt Count 299 Blood Type B POSITIVE Antibody Screen Negative
[2017-11-03] MEDS ORDERED: ePHEDrine SULFATE IV PRN (13:17)
[2017-11-03] MEDS ORDERED: NARCAN 2 MG/2 ML IV PRN (13:17)
--- NOTE | 2017-11-03 13:18 | Anesthesia Consultation ---
Anesthesia Consult and Med Hx Date of service: 11/03/17 - Airway Anesthetic Teeth Evaluation: Good ROM Head & Neck: Adequate Mental/Hyoid Distance: Adequate Mallampati Class: Class I Intubation Access Assessment: Good - Pulmonary Exam CTA: Yes - Cardiac Exam Cardiac Exam: RRR - Pre-Operative Health Status ASA Pre-Surgery Classification: ASA2 Proposed Anesthetic Plan: Epidural, Spinal - Pulmonary Hx Asthma: No COPD: No Hx Pneumonia: No - Cardiovascular System Hx Hypertension: No - Central Nervous System Hx Seizures: No Hx Psychiatric Problems: Yes (hx of depression, no meds) - Endocrine Hx Renal Disease: No Hx Hypothyroidism: No Hx Hyperthyroidism: No - Hematic Hx Anemia: No Hx Sickle Cell Disease: No - Other Systems Hx Alcohol Use: No
--- NOTE | 2017-11-03 13:58 | Event Note ---
Date: 11/03/17 pt comfortable s/p epidural MVU 255 Will recheck @ [id number]
[2017-11-03] MEDS ORDERED: fentaNYL-BUPIV 2 MCG/ML-0.125% 200 MCG/100 ML BAG EPIDURAL SCH ×2 (14:30→17:00)
--- NOTE | 2017-11-03 14:54 | Progress Note ---
Assessment and Plan no change in SVE, plan of care discussed re need for c/s d/t failure to progress despite adequate labor, prolonged ROM and CAT 2 fht. Patient and mother verbalize understanding. Dr. Bennett consulted and c/s called. pre-op orders in EMR. - Patient Problems (1) pyelectasis Current Visit: Yes Status: Acute (2) Circumvallate placenta, third trimester Current Visit: Yes Status: Acute (3) Premature rupture of membranes Current Visit: Yes Status: Acute Qualifiers: PROM onset of labor timing: onset of labor more than 24 hours following rupture PROM gestational age: full term Qualified Code(s): O42.12 - Full- term premature rupture of membranes, onset of labor more than 24 hours following rupture (4) 39 weeks gestation of Current Visit: Yes Status: Acute Subjective - Subjective Date of service: 11/03/17 Principal diagnosis: IUP @ 39+4, PPROM 11/02/17 @ 1120 Interval history: EDC Confirmation: 11/06/2017 Past History : 2 Para: 0 Aborta: 1 Spont. Ab: 1 # 1 Delivery date: 10/03/2016 Delivery type: SAB Past Medical History: Reviewed history and no changes required: Negative Past Medical History Past Surgical History: Reviewed history and no changes required: negative Past Medical History Anesthesia Complications: negative Anemia: negative Autoimmune Disorder: negative Bleeding Disorder: negative Blood Transfusions: negative Breast Disease: negative Diabetes: negative Heart Disease: negative Hypertension: negative Hepatitis/Liver Disease: negative Kidney Disease/UTI: negative Neurologic/Epilepsy/Migraines: negative Phlebitis/Varicosities: negative Psychiatric: negative Pulmonary Disease/Asthma: negative Thyroid Disease: negative Hospitalizations: negative Surgery (Non-obstetrics/gynecology nurse): negative Infection History Hx of STD: none HIV Risk Eval: low risk Hepatitis B Risk Eval: low risk Personal hx. of genital herpes: no Partner hx. of genital herpes: no Varicella/Chicken Pox Status: Previous Disease TB Risk: no Genetic History Congenital Heart Defect: Mom: no Dad: no Bharath Disease: Mom: no Dad: no Thalassemia Mom: no Dad: no Neural Tube Defect Mom: no Dad: no Down's Syndrome Mom: no Dad: no Mike-Sachs Mom: no Dad: no Sickle Cell Disease/Trait Mom: no Dad: no Hemophilia Mom: no Dad: no Muscular Dystrophy Mom: no Dad: no Cystic Fibrosis Mom: no Dad: no Leake Chorea Mom: no Dad: no Mental Retardation Mom: no Dad: no Fragile X Mom: no Dad: no Other Genetic/Chromosomal Disorder Mom: no Dad: no Child w/other defect Mom: no Dad: no Enviromental Exposures Xray Exposure: no Medication, drug, or alcohol use since LMP: no Chemical/Other Exposure: no Exposure to Cat Liter: no Hx of Parvovirus (Fifth Disease): no Active Medications (reviewed today): PLUS 27-1 MG TABS ( VIT-FE FUMARATE-FA) 1 po IBUPROFEN 600 MG TABS (IBUPROFEN) 1 po q 4 hrs as directed prn ULTRAM 50 MG TABS (TRAMADOL HCL) 1-2 po q 6hrs prn pain Current Allergies (reviewed today): No known allergies Patient reports: loss of fluid, no new complaints (comfortable with epidural), no vaginal bleeding Objective - Vital Signs Vital Signs: Vital Signs - 12hr 11/03/17 11/03/17 11/03/17 02:56 03:01 03:06 Temperature Pulse Rate 100 H 102 H 99 H Respiratory Rate Blood Pressure O2 Sat by Pulse 95 95 96 Oximetry 11/03/17 11/03/17 11/03/17 03:11 03:16 03:21 Temperature 98.3 F Pulse Rate 101 H 98 H 97 H Respiratory 20 Rate Blood Pressure O2 Sat by Pulse 97 97 96 Oximetry 11/03/17 11/03/17 11/03/17 03:24 03:26 03:31 Temperature Pulse Rate 96 H 103 H 95 H Respiratory Rate Blood Pressure 113/57 O2 Sat by Pulse 96 96 Oximetry 11/03/17 11/03/17 11/03/17 03:36 03:41 03:46 Temperature Pulse Rate 99 H 97 H 111 H Respiratory Rate Blood Pressure O2 Sat by Pulse 97 97 98 Oximetry 11/03/17 11/03/17 11/03/17 03:51 03:56 04:01 Temperature Pulse Rate 96 H 103 H 89 Respiratory Rate Blood Pressure O2 Sat by Pulse 98 96 97 Oximetry 11/03/17 11/03/17 11/03/17 04:06 04:11 04:16 Temperature Pulse Rate 88 84 89 Respiratory Rate Blood Pressure O2 Sat by Pulse 98 98 98 Oximetry 11/03/17 11/03/17 11/03/17 04:21 04:26 04:31 Temperature Pulse Rate 89 88 88 Respiratory Rate Blood Pressure O2 Sat by Pulse 97 97 98 Oximetry 11/03/17 11/03/17 11/03/17 04:36 04:41 04:46 Temperature Pulse Rate 85 90 90 Respiratory Rate Blood Pressure O2 Sat by Pulse 97 97 97 Oximetry 11/03/17 11/03/17 11/03/17 04:51 04:56 05:01 Temperature Pulse Rate 91 H 90 91 H Respiratory Rate Blood Pressure O2 Sat by Pulse 97 96 97 Oximetry 11/03/17 11/03/17 11/03/17 05:06 05:11 05:15 Temperature Pulse Rate 98 H 90 92 H Respiratory Rate Blood Pressure O2 Sat by Pulse 96 98 93 Oximetry 11/03/17 11/03/17 11/03/17 05:16 05:21 05:26 Temperature Pulse Rate 98 H 101 H 98 H Respiratory Rate Blood Pressure O2 Sat by Pulse 98 98 98 Oximetry 11/03/17 11/03/17 11/03/17 05:31 05:36 05:41 Temperature Pulse Rate 92 H 98 H 97 H Respiratory Rate Blood Pressure O2 Sat by Pulse 98 100 98 Oximetry 11/03/17 11/03/17 11/03/17 06:22 06:43 06:44 Temperature 98.4 F Pulse Rate 87 86 Respiratory Rate Blood Pressure 104/69 O2 Sat by Pulse 98 Oximetry 11/03/17 11/03/17 11/03/17 08:56 09:15 09:20 Temperature Pulse Rate 109 H 99 H 102 H Respiratory Rate Blood Pressure 125/81 129/66 O2 Sat by Pulse 98 98 99 Oximetry 11/03/17 11/03/17 11/03/17 09:25 09:26 09:30 Temperature Pulse Rate 109 H 111 H 102 H Respiratory Rate Blood Pressure 128/65 O2 Sat by Pulse 98 97 Oximetry 11/03/17 11/03/17 11/03/17 09:35 09:40 09:45 Temperature Pulse Rate 103 H 97 H 95 H Respiratory Rate Blood Pressure O2 Sat by Pulse 98 97 97 Oximetry 11/03/17 11/03/17 11/03/17 09:50 09:55 10:00 Temperature Pulse Rate 96 H 109 H 97 H Respiratory Rate Blood Pressure O2 Sat by Pulse 96 98 97 Oximetry 11/03/17 11/03/17 11/03/17 10:05 10:10 10:15 Temperature Pulse Rate 104 H 109 H 99 H Respiratory Rate Blood Pressure 127/77 O2 Sat by Pulse 96 95 97 Oximetry 11/03/17 11/03/17 11/03/17 10:19 10:20 10:25 Temperature Pulse Rate 105 H 97 H 105 H Respiratory Rate Blood Pressure O2 Sat by Pulse 88 98 96 Oximetry 11/03/17 11/03/17 11/03/17 10:26 10:30 10:35 Temperature Pulse Rate 109 H 105 H 106 H Respiratory Rate Blood Pressure 121/62 O2 Sat by Pulse 97 96 Oximetry 11/03/17 11/03/17 11/03/17 10:40 10:45 10:50 Temperature 97.7 F Pulse Rate 91 H 102 H 108 H Respiratory 15 Rate Blood Pressure O2 Sat by Pulse 98 96 96 Oximetry 11/03/17 11/03/17 11/03/17 10:55 10:56 11:00 Temperature Pulse Rate 116 H 116 H 106 H Respiratory Rate Blood Pressure 118/73 O2 Sat by Pulse 97 96 Oximetry 11/03/17 11/03/17 11/03/17 11:05 11:10 11:15 Temperature Pulse Rate 107 H 103 H 111 H Respiratory Rate Blood Pressure O2 Sat by Pulse 98 97 97 Oximetry 11/03/17 11/03/17 11/03/17 11:20 11:25 11:26 Temperature Pulse Rate 109 H 103 H 100 H Respiratory Rate Blood Pressure 133/78 O2 Sat by Pulse 97 96 Oximetry 11/03/17 11/03/17 11/03/17 11:30 11:35 11:40 Temperature Pulse Rate 105 H 100 H 94 H Respiratory Rate Blood Pressure O2 Sat by Pulse 96 96 96 Oximetry 11/03/17 11/03/17 11/03/17 11:45 11:50 11:55 Temperature Pulse Rate 97 H 115 H 96 H Respiratory Rate Blood Pressure O2 Sat by Pulse 98 95 95 Oximetry 11/03/17 11/03/17 11/03/17 11:57 12:00 12:05 Temperature Pulse Rate 107 H 116 H 102 H Respiratory Rate Blood Pressure 127/71 O2 Sat by Pulse 97 97 Oximetry 11/03/17 11/03/17 11/03/17 12:10 12:15 12:20 Temperature Pulse Rate 109 H 102 H 102 H Respiratory Rate Blood Pressure O2 Sat by Pulse 96 97 97 Oximetry 11/03/17 11/03/17 11/03/17 12:25 12:30 12:35 Temperature Pulse Rate 102 H 105 H 96 H Respiratory Rate Blood Pressure O2 Sat by Pulse 97 96 95 Oximetry 11/03/17 11/03/17 11/03/17 12:40 12:45 12:50 Temperature Pulse Rate 109 H 96 H 103 H Respiratory Rate Blood Pressure O2 Sat by Pulse 98 97 98 Oximetry 11/03/17 11/03/17 11/03/17 12:55 12:57 13:00 Temperature Pulse Rate 106 H 103 H 113 H Respiratory Rate Blood Pressure 115/69 O2 Sat by Pulse 96 97 Oximetry 11/03/17 11/03/17 11/03/17 13:05 13:10 13:15 Temperature Pulse Rate 107 H 102 H 94 H Respiratory Rate Blood Pressure O2 Sat by Pulse 99 97 98 Oximetry 11/03/17 11/03/17 11/03/17 13:20 13:25 13:31 Temperature Pulse Rate 103 H 111 H 104 H Respiratory Rate Blood Pressure O2 Sat by Pulse 98 98 99 Oximetry 11/03/17 11/03/17 11/03/17 13:33 13:36 13:39 Temperature Pulse Rate 114 H 101 H 108 H Respiratory Rate Blood Pressure 121/69 121/70 O2 Sat by Pulse 98 Oximetry 11/03/17 11/03/17 11/03/17 13:41 13:42 13:46 Temperature Pulse Rate 65 97 H Respiratory Rate Blood Pressure 120/70 O2 Sat by Pulse 72 L 73 L 96 Oximetry 11/03/17 11/03/17 11/03/17 13:51 13:56 14:00 Temperature 98.1 F Pulse Rate 107 H 107 H Respiratory 16 Rate Blood Pressure 110/63 O2 Sat by Pulse 98 97 Oximetry 11/03/17 11/03/17 11/03/17 14:01 14:06 14:11 Temperature Pulse Rate 101 H 94 H 88 Respiratory Rate Blood Pressure O2 Sat by Pulse 98 97 97 Oximetry 11/03/17 11/03/17 11/03/17 14:16 14:21 14:26 Temperature Pulse Rate 91 H 92 H 91 H Respiratory Rate Blood Pressure 101/65 O2 Sat by Pulse 97 96 98 Oximetry 11/03/17 11/03/17 11/03/17 14:31 14:36 14:41 Temperature Pulse Rate 95 H 101 H 98 H Respiratory Rate Blood Pressure 118/76 O2 Sat by Pulse 98 98 99 Oximetry 11/03/17 11/03/17 11/03/17 14:46 14:51 14:56 Temperature Pulse Rate 103 H 109 H 96 H Respiratory Rate Blood Pressure 127/80 O2 Sat by Pulse 98 100 Oximetry - Exam Breasts: normal Abdomen: Present: normal appearance, soft. Absent: distention, tenderness Uterus: Present: normal FHR: category 2 Uterine Contraction Monitor Mode: Internal Cervical Dilatation: 3.5 Cervical Effacement Percentage: 60 station: -3 Uterine Contraction Frequency (min): 2-3 Uterine Contraction Duration: 60 Uterine Contraction Pattern: Regular Uterine Tone Measurement Phase: Contraction Uterine Contraction Intensity: Strong/Firm Extremities: normal Deep Tendon Reflex Grade: Normal +2 - Labs Labs: Abnormal Labs 11/02/17 15:08 MCH 27 L Laboratory Results - last 24 hr 11/02/17 11/02/17 15:08 15:08 WBC 9.5 RBC 4.45 Hgb 12.2 Hct 37.3 MCV 84 MCH 27 L MCHC 33 RDW 13.4 Plt Count 299 Blood Type B POSITIVE Antibody Screen Negative
[2017-11-03] MEDS ORDERED: PEPCID IV ONE (14:55)
[2017-11-03] MEDS ORDERED: BICITRA PO ONE (14:55)
[2017-11-03] MEDS ORDERED: REGLAN IV ONE (14:55)
[2017-11-03] MEDS ORDERED: ANCEF/STERILE WATER 2 GM/20 ML 2 GM/20 ML SYRINGE IV NR (15:00)
[2017-11-03] MEDS ORDERED: WATER FOR IRRIG STERILE IR ONE (15:38)
[2017-11-03] MEDS ORDERED: NACL 0.9% IR ONE (15:38)
[2017-11-03] MEDS ORDERED: XYLOCAINE MPF 2% ONE ×2 (15:41)
[2017-11-03] MEDS: PITOCin/NS 20 UNIT/1000ML DRIP 20 UNITS/1,000 ML BAG IV SCH ×2 (15:46→17:57)
--- NOTE | 2017-11-03 16:19 | Operative Report ---
Operative Report Operative Report: Date: 11/03/2017 Preoperative diagnosis: 1. Intrauterine at 39 weeks 2. Prolonged rupture of membranes 3. Failure to dilate 4. Body mass index of 41 Postoperative diagnosis: 1. Intrauterine at 39 weeks 2. Prolonged rupture of membranes 3. Failure to dilate 4. Body mass index of 41 Procedure: Low uterine transverse incision for delivery Surgeon: Vane Bennett MD Agricultural Science Professor: Sam Bennett CNM Anesthesia: Epidural Anesthesiologist: Dr. Lopez Estimated blood loss: 600 mL Urine out: 100 mL Findings: Live born male infant. Weight 6 lbs. 14 oz. Apgars 9 at 1 minute and 9 at 9 minutes. Uterus normal, tubes normal, ovaries normal. Procedure: After risk, benefits, complications, consequences and alternatives for this procedure were discussed with patient and consents were reviewed and signed, she was taken to the OR where epidural anesthesia was bolused. She was then placed in the left lateral tilt position, and prepped and draped in the usual sterile fashion. Timeout was performed, and an appropriate level of anesthesia was noted, a Pfannenstiel incision was made and extended to the fascia which was incised and extended in the lateral directions. The overlying fascia was sharply dissected away from the underlying rectus muscles in the superior and inferior directions. The midline was entered bluntly. The vesicouterine fold was incised and with blunt dissection the bladder flap was created. A transverse incision was made in the lower uterine segment and extended in superiolateral direction with finger fractionation. Clear fluid was noted. The was delivered from cephalic position. Mouth and nose were bulb suctioned. Spontaneous cry and excellent tone were noted. Cord was doubly clamped and cut. The infant was given to /resuscitation team present. The placenta was manually extracted. The uterus was then exteriorized and cleared of any further products of conception or placental tissue. The incision was reapproximated using 0 Vicryl in a running interlocking stitch. Grossly normal uterus, tubes and ovaries were noted. Once hemostasis was noted, the uterus was allowed back into the pelvic cavity. The pelvis was irrigated with warm normal saline. Again hemostasis was noted . Surgicel applied for further hemostasis. Interceed was then placed to prevent adhesions. Then attention was turned to the rectus muscles. The rectus muscles reapproximated using 0 Vicryl in a simple interrupted stitch x 3. Once hemostasis was noted, the fascia was reapproximated using 0 Vicryl running stitch fashion. Once hemostasis was noted skin incision was reapproximated using 4-0 Vicryl on a Mart needle in a subcuticular manner. Counts were correct 3. Patient tolerated procedure well state recovery room in stable condition.
[2017-11-03] MEDS ORDERED: PHENERGAN PR PRN (16:30)
[2017-11-03] MEDS ORDERED: PHENERGAN PO PRN (16:30)
[2017-11-03] MEDS ORDERED: NARCAN 0.4 MG/1 ML IV PRN ×2 (16:30→19:30)
[2017-11-03] MEDS ORDERED: ZOFRAN IV PRN (16:30)
[2017-11-03] MEDS: MORPHINE IV PRN ×2 (16:46→17:36)
[2017-11-03] MEDS ORDERED: SODIUM CHLORIDE FLUSH SYRINGE 10 ML IV SCH (17:00)
[2017-11-03] MEDS ORDERED: TORADOL IV ONE (18:00)
[2017-11-03] MEDS ORDERED: TUCKS PAD TP PRN (19:30)
[2017-11-03] MEDS ORDERED: NUBAIN IV PRN (19:30)
[2017-11-03] MEDS ORDERED: LANSINOH TP PRN (19:30)
[2017-11-03] MEDS ORDERED: TYLENOL PO PRN (19:30)
[2017-11-03] MEDS ORDERED: PITOCin/NS 20 UNIT/1000ML DRIP 20 UNITS/1,000 ML BAG IV SCH (19:30)
[2017-11-03] MEDS ORDERED: NORCO 5/325 PO PRN (19:30)
[2017-11-03] MEDS ORDERED: MILK OF MAGNESIA PO PRN (19:30)
[2017-11-03] MEDS ORDERED: TORADOL IV PRN (19:30)
[2017-11-03] MEDS ORDERED: ANCEF/NS 1 GM/50 ML 1 GM/50 ML BAG IV SCH (19:30)
[2017-11-03] MEDS ORDERED: MYLICON PO PRN (19:30)
[2017-11-03] MEDS ORDERED: SODIUM CHLORIDE FLUSH SYRINGE 10 ML IV NR (19:30)
[2017-11-03] MEDS: ceFAZolin 1 GM in NACL 0.9% 20 ML IV SCH (21:42)
[2017-11-04] MEDS ORDERED: D5LR 1,000 ML IV SCH (03:00)
[2017-11-04] MEDS: ceFAZolin 1 GM in NACL 0.9% 20 ML IV SCH (03:28)
[2017-11-04 05:03] LABS: Hematocrit 32.7 % (30.3-42.9)
--- NOTE | 2017-11-04 08:36 | Progress Note ---
Assessment and Plan - Patient Problems (1) delivery delivered Current Visit: Yes Status: Acute Plan to address problem: -routine pp/post op care -ADAT -encouraged ambulation today -Pt overall doing well. Subjective - Subjective Date of service: 11/04/17 Principal diagnosis: POD #1 s/p primary LTCS Interval history: Patient is doing well. Pain is currently well controlled. She has no c/o this am. Ambulation was encouraged. Patient reports: appetite normal, voiding normally, pain well controlled, flatus , ambulating normally, no dizzy ambulation [place]: doing well, nursing well Objective - Vital Signs Latest vital signs: Vital Signs Temp Pulse Resp BP BP Pulse Ox 11/04/17 07:08 18 11/04/17 06:38 18 11/04/17 05:15 98.0 F 101 H 18 119/81 99 11/04/17 03:09 18 11/04/17 02:39 18 11/04/17 01:55 16 11/03/17 23:35 98.6 F 112 H 18 118/73 96 11/03/17 22:00 18 11/03/17 20:00 18 11/03/17 18:20 98.2 F 90 18 124/70 11/03/17 17:32 92 H 13 135/78 100 11/03/17 17:15 90 15 138/86 90 11/03/17 17:00 89 10 L 129/80 100 11/03/17 16:45 87 19 123/70 100 11/03/17 16:40 102 H 10 L 129/70 100 11/03/17 16:35 87 14 100/79 100 11/03/17 16:30 98.6 F 100 H 18 104/60 100 11/03/17 16:00 16 11/03/17 15:01 106 H 99 11/03/17 14:56 98 H 127/80 98 11/03/17 14:51 109 H 100 11/03/17 14:46 103 H 98 11/03/17 14:41 98 H 99 11/03/17 14:36 101 H 118/76 98 11/03/17 14:31 95 H 98 11/03/17 14:26 91 H 101/65 98 11/03/17 14:21 92 H 96 11/03/17 14:16 91 H 97 11/03/17 14:11 88 97 11/03/17 14:06 94 H 97 11/03/17 14:01 101 H 98 11/03/17 14:00 98.1 F 16 11/03/17 13:56 107 H 110/63 97 11/03/17 13:51 107 H 98 11/03/17 13:46 97 H 120/70 96 11/03/17 13:42 65 73 L 11/03/17 13:41 72 L 11/03/17 13:39 108 H 121/70 11/03/17 13:36 101 H 98 11/03/17 13:33 114 H 121/69 11/03/17 13:31 104 H 99 11/03/17 13:25 111 H 98 11/03/17 13:20 103 H 98 11/03/17 13:15 94 H 98 11/03/17 13:10 102 H 97 11/03/17 13:05 107 H 99 11/03/17 13:00 113 H 97 11/03/17 12:57 103 H 115/69 11/03/17 12:55 106 H 96 11/03/17 12:50 103 H 98 11/03/17 12:45 96 H 97 11/03/17 12:40 109 H 98 11/03/17 12:35 96 H 95 11/03/17 12:30 105 H 96 11/03/17 12:25 102 H 97 11/03/17 12:20 102 H 97 11/03/17 12:15 102 H 97 11/03/17 12:10 109 H 96 11/03/17 12:05 102 H 97 11/03/17 12:00 116 H 97 11/03/17 11:57 107 H 127/71 11/03/17 11:55 96 H 95 11/03/17 11:50 115 H 95 11/03/17 11:45 97 H 98 11/03/17 11:40 94 H 96 11/03/17 11:35 100 H 96 11/03/17 11:30 105 H 96 11/03/17 11:26 100 H 133/78 11/03/17 11:25 103 H 96 11/03/17 11:20 109 H 97 11/03/17 11:15 111 H 97 11/03/17 11:10 103 H 97 11/03/17 11:05 107 H 98 11/03/17 11:00 106 H 96 11/03/17 10:56 116 H 118/73 11/03/17 10:55 116 H 97 11/03/17 10:50 108 H 96 11/03/17 10:45 97.7 F 102 H 15 96 11/03/17 10:40 91 H 98 11/03/17 10:35 106 H 96 11/03/17 10:30 105 H 97 11/03/17 10:26 109 H 121/62 11/03/17 10:25 105 H 96 11/03/17 10:20 97 H 98 11/03/17 10:19 105 H 88 11/03/17 10:15 99 H 97 11/03/17 10:10 109 H 95 11/03/17 10:05 104 H 127/77 96 11/03/17 10:00 97 H 97 11/03/17 09:55 109 H 98 11/03/17 09:50 96 H 96 11/03/17 09:45 95 H 97 11/03/17 09:40 97 H 97 11/03/17 09:35 103 H 98 11/03/17 09:30 102 H 97 11/03/17 09:26 111 H 128/65 11/03/17 09:25 109 H 98 11/03/17 09:20 102 H 99 11/03/17 09:15 99 H 129/66 98 11/03/17 08:56 109 H 125/81 98 Intake and Output 11/03/17 11/04/17 11/04/17 22:59 06:59 14:59 Intake Total 2252.917 360 Output Total 1400 900 Balance 852.917 -540 Intake: IV 1772.917 PITOCin/NS 20 UNIT/1000ML 272.917 DRIP 20 units In 1,000 ml @ 125 mls/hr IV DIRECT BERNIE Rx#:[id number] Oral 240 360 Intake, Free Water 240 Output: Urine 1400 900 Indwelling Catheter 800 900 Void 300 Other: Total, Intake Amount 240 120 Total, Output Amount 800 600 Estimated Blood Loss 600 - Exam Lungs: Present: Normal air movement Abdomen: Present: normal appearance, soft. Absent: distention, tenderness, guarding Uterus: Present: normal, firm, fundal height below umbilicus. Absent: tenderness Extremities: Present: normal. Absent: tenderness, edema Deep Tendon Reflex Grade: Normal +2 Incision: Present: normal, dry, intact, dressed
[2017-11-04] MEDS: FEOSOL PO SCH (09:59)
[2017-11-04] MEDS: PRENATAL VITAMIN PO SCH (09:59)
[2017-11-04] MEDS: MOTRIN PO PRN ×2 (09:59→18:12)
[2017-11-04] MEDS: NORCO 5/325 PO PRN (11:55)
[2017-11-04] MEDS ORDERED: BOOSTRIX IM ONE (16:12)
[2017-11-04] MEDS: GUAIFENESIN DM SYRUP PO PRN (22:13)
[2017-11-05] MEDS: NORCO 5/325 PO PRN ×2 (00:08→12:28)
[2017-11-05] MEDS: MOTRIN PO PRN ×3 (05:42→23:47)
--- NOTE | 2017-11-05 07:51 | Progress Note ---
Assessment and Plan patient sitting up holding infant, appear to be bonding well, no distress noted. VSSAF, H&H stable, incision D&I, patient denies any s/s depression, SI, HI or hearing voices. Patient awaiting mental health eval and request to restart medications for bipolar and schizophrenia. RN aware and will contact mental health, plan for d/c home tomorrow if stable. - Patient Problems (1) pyelectasis Current Visit: Yes Status: Acute Plan to address problem: f/u with peds urology (2) Bipolar 1 disorder Current Visit: Yes Status: Acute (3) delivery delivered Current Visit: Yes Status: Acute (4) Schizophrenia Current Visit: Yes Status: Acute Qualifiers: Schizophrenia type: unspecified Qualified Code(s): F20.9 - Schizophrenia, unspecified Subjective - Subjective Date of service: 11/05/17 Principal diagnosis: POD #2 s/p primary LTCS Interval history: EDC Confirmation: 11/06/2017 Past History : 2 Para: 0 Aborta: 1 Spont. Ab: 1 # 1 Delivery date: 10/03/2016 Delivery type: SAB Past Medical History: Reviewed history and no changes required: Negative Past Medical History Past Surgical History: Reviewed history and no changes required: negative Past Medical History Anesthesia Complications: negative Anemia: negative Autoimmune Disorder: negative Bleeding Disorder: negative Blood Transfusions: negative Breast Disease: negative Diabetes: negative Heart Disease: negative Hypertension: negative Hepatitis/Liver Disease: negative Kidney Disease/UTI: negative Neurologic/Epilepsy/Migraines: negative Phlebitis/Varicosities: negative Psychiatric: negative Pulmonary Disease/Asthma: negative Thyroid Disease: negative Hospitalizations: negative Surgery (Non-word processor): negative Infection History Hx of STD: none HIV Risk Eval: low risk Hepatitis B Risk Eval: low risk Personal hx. of genital herpes: no Partner hx. of genital herpes: no Varicella/Chicken Pox Status: Previous Disease TB Risk: no Genetic History Congenital Heart Defect: Mom: no Dad: no Bharath Disease: Mom: no Dad: no Thalassemia Mom: no Dad: no Neural Tube Defect Mom: no Dad: no Down's Syndrome Mom: no Dad: no Mike-Sachs Mom: no Dad: no Sickle Cell Disease/Trait Mom: no Dad: no Hemophilia Mom: no Dad: no Muscular Dystrophy Mom: no Dad: no Cystic Fibrosis Mom: no Dad: no Marly Chorea Mom: no Dad: no Mental Retardation Mom: no Dad: no Fragile X Mom: no Dad: no Other Genetic/Chromosomal Disorder Mom: no Dad: no Child w/other defect Mom: no Dad: no Enviromental Exposures Xray Exposure: no Medication, drug, or alcohol use since LMP: no Chemical/Other Exposure: no Exposure to Cat Liter: no Hx of Parvovirus (Fifth Disease): no Active Medications (reviewed today): PLUS 27-1 MG TABS ( VIT-FE FUMARATE-FA) 1 po IBUPROFEN 600 MG TABS (IBUPROFEN) 1 po q 4 hrs as directed prn ULTRAM 50 MG TABS (TRAMADOL HCL) 1-2 po q 6hrs prn pain Current Allergies (reviewed today): No known allergies Patient reports: appetite normal, voiding normally, pain well controlled, bowel movement, ambulating normally, no dizzy ambulation, no nauseated : doing well, bottle feeding Objective - Vital Signs Latest vital signs: Vital Signs Temp Pulse Resp BP Pulse Ox 11/05/17 00:30 98.3 F 97 H 20 104/70 98 11/05/17 00:08 18 11/04/17 13:30 98.8 F 102 H 20 109/65 98 Intake and Output 11/04/17 11/04/17 11/05/17 15:59 23:59 07:59 Intake Total 1000 240 Output Total 1200 Balance -200 240 Intake: IV 1000 D5lr 1,000 ml @ 125 mls/ 1000 hr IV DIRECT BERNIE Rx#: [id number] Oral 240 Output: Urine 1200 Void 1200 Other: Total, Intake Amount 240 Total, Output Amount 600 # Voids Void 1 # Bowel Movements 1 - Exam Breasts: Present: normal Cardiovascular: Present: Regular rate Lungs: Present: Clear to auscultation, Normal air movement Abdomen: Present: normal appearance, soft Vulva: both: normal Uterus: Present: normal, firm, fundal height at umbilicus Extremities: Present: normal Incision: Present: normal, dry, intact
[2017-11-05] MEDS: GUAIFENESIN DM SYRUP PO PRN (09:34)
[2017-11-05] MEDS: PRENATAL VITAMIN PO SCH (13:03)
[2017-11-05] MEDS: FEOSOL PO SCH (13:03)
--- NOTE | 2017-11-06 06:21 | Discharge Summary ---
Providers - Providers Date of Admission: 11/02/17 13:32 Date of discharge: 11/06/17 (pt agrees with d/c) Attending physician: MARISSA GOODE 11/03/17 19:30 Consult to Case Management [CONS] Routine Services Needed at Discharge: Bacteriologist [place]il Notified:: no Consult to Relationship Executive [CONS] Routine Reason For Exam: 11/04/17 16:11 Consult to Physician [CONS] Routine Consulting Provider: ELVA KING Reason For Exam: Mental health consult Place consult to:: Dr. King Notified:: mental health dept. Phone number called:: [phone] Was contact made?: Yes If yes, spoke with:: Erica Warren Time called:: 10:00 Primary care physician: MARISSA GOODE Hospitalization Reason for admission: induction of labor Delivery: Procedure: primary low transverse Episiotomy: none Laceration: none Incision: normal, dry, intact Other procedures: none complications: none Discharge diagnosis: IUP at term delivered baby: male Hospital course: uncomplicated section: failure to dilate Pt resting No c/o voiced VSS FF below umb Lochia scant Incision D&I Stable H&H Asymptomatic Doing well s/p c/s. P: d/c today with instructions RTO 1 week postop visit and circumcision Condition at discharge: Good Disposition: DC-01 TO HOME OR SELFCARE - Discharge Diagnoses (1) delivery delivered Status: Acute Comment: RTO one week postop Plan - Discharge Medications Prescriptions: Ibuprofen [Motrin 800 MG tab] 800 mg PO TID PRN #30 tablet PRN Reason: Pain Lidocain2.5%/Prilocai2.5% [Emla] 5 gm TP ONCE #1 tube oxyCODONE /ACETAMINOPHEN [Percocet 5/325 mg] 1 - 2 tab PO Q4HR PRN #30 tablet PRN Reason: Pain - Provider Discharge Summary Activity: routine, no sex for 6 weeks, no heavy lifting 4 weeks, no strenuous exercise Diet: routine Instructions: routine Additional instructions: [] Smoking cessation referral if applicable(refer to patient education folder for contact #) [] Refer to [facility] Booklet Call your doctor immediately for: * Fever > 100.5 * Heavy vaginal bleeding ( >1 pad per hour) * Severe persistent headache * Shortness of breath * Reddened, hot, painful area to leg or breast * Drainage or odor from incision. * Keep incision clean and dry at all times and follow doctor's instructions regarding bathing/showering - Follow up plan Follow up: MARISSA GOODE MD [Primary Care Provider] - 7 Days (Congratulations! Please call [phone] to schedule your postoperative visit and your son's circumcision in 1 week. Bring the EMLA cream with you to his visit. Do NOT use at home. Take medications as prescribed. Call with concerns.) Forms: [facility] Discharge Summary, Discharge Signature Page
[2017-11-06 09:24] VITALS: BP 113/67
[2017-11-06] MEDS ORDERED: Fluarix Quad 2017-2018(36 MOS+ IM ONE (10:53)
[2017-11-06] MEDS: FEOSOL PO SCH (11:47)
[2017-11-06] MEDS: PRENATAL VITAMIN PO SCH (11:47)
== END 2017-11-06 13:00 | disposition home or self-care (01) | DRG 765 ==
LOC: TRG 13:31 → LD 13:32 → OB 11-03 19:29
PROVIDERS: ADMIT Obstetrics & Gynecology; ATTEND Obstetrics & Gynecology
PROC: 10D00Z1 Extraction of Products of Conception, Low, Open Approach (ICD-10-PCS; principal; 2017-11-03)
PROC: 3E0234Z Introduction of Serum, Toxoid and Vaccine into Muscle, Percutaneous Approach (ICD-10-PCS; 2017-11-06)
DX: O42.92 Full-term premature rupture of membranes, unspecified as to length of time between rupture and onset of labor (principal); Z68.41 Body mass index [BMI] 40.0-44.9, adult; O35.8XX0 Maternal care for other (suspected) fetal abnormality and damage, not applicable or unspecified; Z3A.39 39 weeks gestation of pregnancy; E66.9 Obesity, unspecified; Z23 Encounter for immunization; O99.344 Other mental disorders complicating childbirth; F31.9 Bipolar disorder, unspecified; F20.9 Schizophrenia, unspecified; O99.214 Obesity complicating childbirth; Z37.0 Single live birth; O62.0 Primary inadequate contractions; O43.113 Circumvallate placenta, third trimester
CPT/HCPCS: 36415; 59200; 85014; 85018; 85027; 86592; 86850; 86900; 86901; 90471; 90686; 99211; A6250; G0008; G0463; J0690; J1885; J2270; J2590; J7120; J7121

== ENCOUNTER 2018-12-14 16:58 | Emergency (ER) | payer MEDICAID ==
--- NOTE | 2018-12-14 17:15 | Emergency Department Report ---
Chief Complaint: Nausea/Vomiting/Diarrhea Stated Complaint: ABD SICKNESS/N/V Time Seen by Provider: 12/14/18 17:12 - HPI History of Present Illness: THINKS SHE IS A2 LMP 2-18 NO VAG BLEED OR DC PMH BIPOLAR/SCHIZO OFF MEDS PSH NONE RX NONE NO ETOH/CIG/DRUGS MSE screening note: Focused history and physical exam performed. Due to findings the following was ordered: ED Disposition for MSE Condition: Stable
[2018-12-14 17:48] LABS: Bacteria,Urine 1+ /HPF (Negative); Bilirubin,Urine NEG (Negative); Blood,Urine NEG (Negative); Color,Urine Yellow (Yellow); Mucus,Urine FEW /HPF; Protein,Urine <15 mg/dL mg/dL (Negative); Urobilinogen,Urine < 2.0 mg/dL (<2.0)
[2018-12-14 17:54] LABS: HCG Qualitative,Urine Positive (Negative)
--- NOTE | 2018-12-14 18:03 | Emergency Department Report ---
ED Dysuria HPI - HPI Chief Complaint: Nausea/Vomiting/Diarrhea Stated Complaint: ABD SICKNESS/N/V Time Seen by Provider: 12/14/18 17:12 Duration: 2 Days Location of Discomfort: Suprapubic Severity: Mild Symptoms: Dysuria: No, Frequency: No, Suprapubic Pain: No, Flank Pain: No, Fever: No, Hematuria: No, Abdominal Pain: No, Previous UTI's: No Other History: 28 yo with several days of AM nausea. concerned she is . ED Review of Systems ROS: Stated complaint: ABD SICKNESS/N/V Other details as noted in HPI Comment: All other systems reviewed and negative Constitutional: denies: chills Eyes: denies: eye pain ENT: denies: throat pain Respiratory: denies: cough Cardiovascular: denies: palpitations Endocrine: denies: flushing Gastrointestinal: denies: nausea Genitourinary: as per HPI Musculoskeletal: denies: as per HPI Skin: denies: lesions Hematological/Lymphatic: denies: easy bleeding ED Past Medical Hx - Past Medical History Hx Hypertension: No Hx Congestive Heart Failure: No Hx Diabetes: No Hx Deep Vein Thrombosis: No Hx Renal Disease: No Hx Sickle Cell Disease: No Hx Seizures: No Hx Psychiatric Treatment: Yes (BIPOLAR / SCHIZOPHRENIA / DEPRESSION) Hx Asthma: No Hx COPD: No Hx HIV: No - Surgical History Past Surgical History?: No - Family History Family history: no significant - Social History Smoking Status: Never Smoker Substance Use Type: None - Medications Home Medications: Home Medications Medication Instructions Recorded Confirmed Last Taken Type Ondansetron [Zofran Odt] 4 mg PO Q8HR PRN #10 tab.rapdis 12/14/18 Unknown Rx Pnv No.95/Ferrous Fum/Folic AC 1 each PO DAILY #30 tablet 12/14/18 Unknown Rx [ Vitamin Tablet] Dysuria Exam - Exam General: Vital signs noted. No distress. Alert and acting appropriately. Exam: Yes Moist Mucous Membranes, No CVA Tenderness, No Abdominal Tenderness, No Rigidity or Guarding Labs: Lab Results 12/14/18 Range/Units 17:27 Urine Color Yellow (Yellow) Urine Turbidity Cloudy (Clear) Urine pH 6.0 (5.0-7.0) Ur Specific [place] 1.030 (1.003-1.030) Urine Protein <15 mg/dl (Negative) mg/dL Urine Glucose (UA) Neg (Negative) mg/dL Urine Ketones Neg (Negative) mg/dL Urine Blood Neg (Negative) Urine Nitrite Neg (Negative) Urine Bilirubin Neg (Negative) Urine Urobilinogen < 2.0 (<2.0) mg/dL Ur Leukocyte Esterase Sm (Negative) Urine WBC (Auto) 3.0 (0.0-6.0) /HPF Urine RBC (Auto) 1.0 (0.0-6.0) /HPF U Epithel Cells (Auto) 34.0 H (0-13.0) /HPF Urine Bacteria (Auto) 1+ (Negative) /HPF Urine Mucus Few /HPF Urine HCG, Qual Positive A (Negative) ED Medical Decision Making - Medical Decision Making Lab Results 12/14/18 Range/Units 17:27 Urine Color Yellow (Yellow) Urine Turbidity Cloudy (Clear) Urine pH 6.0 (5.0-7.0) Ur Specific [place] 1.030 (1.003-1.030) Urine Protein <15 mg/dl (Negative) mg/dL Urine Glucose (UA) Neg (Negative) mg/dL Urine Ketones Neg (Negative) mg/dL Urine Blood Neg (Negative) Urine Nitrite Neg (Negative) Urine Bilirubin Neg (Negative) Urine Urobilinogen < 2.0 (<2.0) mg/dL Ur Leukocyte Esterase Sm (Negative) Urine WBC (Auto) 3.0 (0.0-6.0) /HPF Urine RBC (Auto) 1.0 (0.0-6.0) /HPF U Epithel Cells (Auto) 34.0 H (0-13.0) /HPF Urine Bacteria (Auto) 1+ (Negative) /HPF Urine Mucus Few /HPF Urine HCG, Qual Positive A (Negative) pos preg test no vag bleed no vag dc dc home with dc poc Critical care attestation.: If time is entered above; I have spent that time in minutes in the direct care of this critically ill patient, excluding procedure time. ED Disposition Clinical Impression: Disposition: DC-01 TO HOME OR SELFCARE Is pt being admited?: No Does the pt Need Aspirin: No Condition: Stable Instructions: (ED) Additional Instructions: SAFE SEX DAILY VITAMIN HYDRATE WELL WITH WATER ZOFRAN FOR NAUSEA DIET TOLERATED TYLENOL FOR PAIN FOLLOW UP OBGYN ANALI FOR CARE Prescriptions: Pnv No.95/Ferrous Fum/Folic AC [ Vitamin Tablet] 1 each PO DAILY #30 tablet Ondansetron [Zofran Odt] 4 mg PO Q8HR PRN #10 tab.rapdis PRN Reason: Vomiting Referrals: GUDELIA SMITH MD [Staff Physician] - 3-5 Days Time of Disposition: 17:59
== END 2018-12-14 18:00 | disposition home or self-care (01) ==
LOC: ED 16:58
DX: O26.899 Other specified pregnancy related conditions, unspecified trimester (principal); R30.0 Dysuria; Z3A.00 Weeks of gestation of pregnancy not specified
CPT/HCPCS: 81001; 81025; 99283

== ENCOUNTER 2018-12-29 16:59 | Emergency (ER) | payer MEDICAID ==
--- NOTE | 2018-12-29 18:05 | Emergency Department Report ---
Blank Doc - Documentation Documentation: This is a 28-year-old female that presents with n/v x2 weeks. Stated is pregn ant. Denies any vaginal bleeding or abdominal/pelvic pain. This initial assessment/diagnostic orders/clinical plan/treatment(s) is/are subject to change based on patient's health status, clinical progression and re- assessment by fellow clinical providers in the ED. Further treatment and workup at subsequent clinical providers discretion. Patient/guardians urged not to elope from the ED as their condition may be serious if not clinically assessed and managed. Initial orders include: 1- Patient sent to [facility] for further evaluation and treatment 2- Labs
[2018-12-29 18:09] VITALS: BP 135/71
[2018-12-29 18:43] LABS: Basophils % (Auto) 0.8 % (0.0-1.8); Eosinophils # (Auto) 0.1 K/mm3 (0.0-0.4); Eosinophils % (Auto) 2.8 % (0.0-4.3); Hematocrit 40.9 % (30.3-42.9); Hemoglobin 13.8 gm/dl (10.1-14.3); Lymphocytes # (Auto) 0.9 K/mm3 (1.2-5.4); Lymphocytes % (Auto) 22.9 % (13.4-35.0); Mean Corpuscular HGB Conc 34 % (30-34); Mean Corpuscular Volume 87 fl (79-97); Monocytes # (Auto) 0.3 K/mm3 (0.0-0.8); Platelet Count 283 K/mm3 (140-440); Red Blood Count 4.73 M/mm3 (3.65-5.03); Red Cell Distribution Width 12.6 % (13.2-15.2)
[2018-12-29 18:57] LABS: BUN/Creatinine Ratio 10; Blood Urea Nitrogen 5 mg/dL (7-17); Calcium 8.9 mg/dL (8.4-10.2); Hemolysis Index 4
[2018-12-29] MEDS ORDERED: IBUPROFEN PO ONE (23:31)
[2018-12-29] MEDS ORDERED: ZOFRAN ODT PO ONE (23:48)
--- NOTE | 2018-12-30 00:03 | Emergency Department Report ---
ED N/V/D HPI - General Chief complaint: Nausea/Vomiting/Diarrhea Stated complaint: SEVERE VOMITING Time Seen by Provider: 12/29/18 18:04 Source: patient Mode of arrival: Ambulatory Limitations: No Limitations - History of Present Illness Initial comments: This is a 28-year-old female that presents with n/v x2 weeks. Stated is . Denies any vaginal bleeding or abdominal/pelvic pain. She was seen here on 12/14/2018 was placed on vitamins and Zofran. Patient reports she does have an appointment with [facility] OB department on 01/01/2019 as well as 01/12/2019. Patient denies any vaginal bleeding vaginal discharge. She does admit to epigastric cramping from vomiting. Last menstrual period 11/12/2018. -: week(s) (2) Description of Vomiting: food contents Associated Abdominal Pain: Yes Location: epigastric (epigastric) Radiation: none Severity: mild Quality: cramping Consistency: intermittent Improves with: none Worsens with: vomiting Associated Symptoms: nausea/vomiting - Related Data Previous Rx's Medication Instructions Recorded Last Taken Type Ondansetron [Zofran Odt] 4 mg PO Q8HR PRN #10 tab.rapdis 12/14/18 Unknown Rx Pnv No.95/Ferrous Fum/Folic AC 1 each PO DAILY #30 tablet 12/14/18 Unknown Rx [ Vitamin Tablet] Marika Root [Marika] 250 mg PO QID PRN #20 capsule 12/30/18 Unknown Rx Pyridoxine HCl (Vitamin B6) 25 mg PO QDAY PRN #14 tablet 12/30/18 Unknown Rx [Pyridoxine HCl] Allergies Allergy/AdvReac Type Severity Reaction Status Date / Time No Known Allergies Allergy Verified 12/14/18 17:01 ED Review of Systems ROS: Stated complaint: SEVERE VOMITING Other details as noted in HPI Comment: All other systems reviewed and negative ED Past Medical Hx - Past Medical History Hx Hypertension: No Hx Congestive Heart Failure: No Hx Diabetes: No Hx Deep Vein Thrombosis: No Hx Renal Disease: No Hx Sickle Cell Disease: No Hx Seizures: No Hx Psychiatric Treatment: Yes (BIPOLAR / SCHIZOPHRENIA / DEPRESSION) Hx Asthma: No Hx COPD: No Hx HIV: No - Social History Smoking Status: Never Smoker Substance Use Type: None - Medications Home Medications: Home Medications Medication Instructions Recorded Confirmed Last Taken Type Ondansetron [Zofran Odt] 4 mg PO Q8HR PRN #10 tab.rapdis 12/14/18 Unknown Rx Pnv No.95/Ferrous Fum/Folic AC 1 each PO DAILY #30 tablet 12/14/18 Unknown Rx [ Vitamin Tablet] Marika Root [Marika] 250 mg PO QID PRN #20 capsule 12/30/18 Unknown Rx Pyridoxine HCl (Vitamin B6) 25 mg PO QDAY PRN #14 tablet 12/30/18 Unknown Rx [Pyridoxine HCl] ED Physical Exam - General Limitations: No Limitations General appearance: alert, in no apparent distress - Head Head exam: Present: atraumatic, normocephalic - ENT ENT exam: Present: mucous membranes moist - Respiratory Respiratory exam: Present: normal lung sounds bilaterally. Absent: respiratory distress - Cardiovascular Cardiovascular Exam: Present: regular rate, normal rhythm. Absent: systolic murmur, diastolic murmur, rubs, gallop - GI/Abdominal GI/Abdominal exam: Present: soft, normal bowel sounds - Neurological Exam Neurological exam: Present: alert, oriented X3 - Psychiatric Psychiatric exam: Present: normal affect, normal mood - Skin Skin exam: Present: warm, dry, intact, normal color. Absent: rash ED Course Vital Signs 12/29/18 18:08 Temperature 98 F Pulse Rate 90 Respiratory 18 Rate Blood Pressure 135/71 O2 Sat by Pulse 100 Oximetry ED Medical Decision Making - Lab Data Result diagrams: 12/29/18 18:29 12/29/18 18:29 - Medical Decision Making She has been evaluated by this provider in fast track. Patient appears to have nausea and vomiting due to a virus. Patient is could be having nausea and vomiting secondary to . Patient has had a urinalysis which shows no ketones CBC CMP within normal limits. Patient was able to take Zofran reports that the nausea is improved. By mouth challenge being started now. Patient be discharged home ml [place] root in B6. She is to follow up with her [facility]ERTIFIED REGISTER[facility] provider. Critical care attestation.: If time is entered above; I have spent that time in minutes in the direct care of this critically ill patient, excluding procedure time. ED Disposition Clinical Impression: Hyperemesis gravidarum before end of 22 week gestation with carbohydrate depletion Disposition: DC-01 TO HOME OR SELFCARE Is pt being admited?: No Does the pt Need Aspirin: No Condition: Stable Instructions: Acute Nausea and Vomiting (ED) Prescriptions: Marika Root [Marika] 250 mg PO QID PRN #20 capsule PRN Reason: Nausea And Vomiting Pyridoxine HCl (Vitamin B6) [Pyridoxine HCl] 25 mg PO QDAY PRN #14 tablet PRN Reason: Nausea Referrals: ESPINOZA PALACIOS MD [Primary Care Provider] - 3-5 Days
[2018-12-30 00:14] LABS: Bilirubin,Urine NEG (Negative); Blood,Urine NEG (Negative); Color,Urine Yellow (Yellow); Mucus,Urine FEW /HPF; Protein,Urine <15 mg/dL mg/dL (Negative); Urobilinogen,Urine < 2.0 mg/dL (<2.0)
== END 2018-12-30 03:35 | disposition home or self-care (01) ==
LOC: ED 16:59
DX: O21.0 Mild hyperemesis gravidarum (principal); O99.342 Other mental disorders complicating pregnancy, second trimester; F31.9 Bipolar disorder, unspecified; F20.9 Schizophrenia, unspecified; Z3A.22 22 weeks gestation of pregnancy
CPT/HCPCS: 36415; 80048; 81001; 85025; 99283; Q0162

== ENCOUNTER 2019-07-29 08:47 | Inpatient (IN) | payer MEDICAID ==
[2019-07-29] MEDS ORDERED: BICITRA ORAL LIQD 30ML PO ONE (10:30)
[2019-07-29] MEDS ORDERED: METOCLOPRAMIDE 10 MG/2 ML INJ IV ONE (10:30)
[2019-07-29] MEDS ORDERED: FAMOTIDINE 20 MG/2 ML INJ IV ONE (10:30)
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
[2019-07-29] MEDS ORDERED: HYDROmorphone 1 MG/1 ML INJ IV PRN ×2 (10:51)
[2019-07-29] MEDS ORDERED: ONDANSETRON 4 MG/2 ML INJ IV PRN ×2 (10:51→13:25)
--- NOTE | 2019-07-29 10:51 | Anesthesia Day of Surgery ---
Anesthesia Day of Surgery - Day of Surgery Patient Examined: Yes Patient H&P Reviewed: Yes Patient is NPO: Yes Beta Blockers: No Cardiac Clearance: No Pulmonary Clearance: No Keith's Test: N/A
[2019-07-29 10:57] LABS: Basophils % (Auto) 0.4 % (0.0-1.8); Eosinophils # (Auto) 0.2 K/mm3 (0.0-0.4); Eosinophils % (Auto) 3.5 % (0.0-4.3); Hematocrit 36.8 % (30.3-42.9); Hemoglobin 12.2 gm/dl (10.1-14.3); Lymphocytes # (Auto) 1.4 K/mm3 (1.2-5.4); Lymphocytes % (Auto) 22.7 % (13.4-35.0); Mean Corpuscular HGB Conc 33 % (30-34); Mean Corpuscular Volume 83 fl (79-97); Monocytes # (Auto) 0.4 K/mm3 (0.0-0.8); Monocytes % (Auto) 7.2 % (0.0-7.3); Platelet Count 241 K/mm3 (140-440); Red Blood Count 4.46 M/mm3 (3.65-5.03); Red Cell Distribution Width 13.2 % (13.2-15.2)
[2019-07-29] MEDS ORDERED: DEXMEDETOMIDINE 200 MCG/2 ML VIAL IV ONE (10:57)
[2019-07-29] MEDS ORDERED: OXYTOCIN 20 UNIT/1000ML DRIP 20 UNITS/1,000 ML BAG IV SCH ×2 (11:00→14:00)
[2019-07-29] MEDS ORDERED: LACTATED RINGERS 1,000 ML IV SCH (11:00)
[2019-07-29] MEDS ORDERED: ceFAZolin/Water 2 GM/20 ML 2 GM/20 ML SYRINGE IV NR (11:00)
[2019-07-29] MEDS ORDERED: SODIUM CHLORIDE 0.9% IRR 1,500 ML BOTTLE IR ONE (11:47)
[2019-07-29] MEDS ORDERED: WATER FOR IRRIG STERILE 1,500 ML BOTTLE IR ONE (11:47)
--- NOTE | 2019-07-29 11:57 | History and Physical Report ---
History of Present Illness Date of examination: 07/29/19 Date of admission: 07/29/19 08:47 Chief complaint: Here for an elective repeat . History of present illness: Here for an elective repeat . . Past History Past Surgical History: section - Obstetrical History Expected Date of Delivery: 07/31/19 Actual Gestation: 39 Week(s) 5 Day(s) : 4 Para: 1 Medications and Allergies Allergies Allergy/AdvReac Type Severity Reaction Status Date / Time No Known Allergies Allergy Verified 07/29/19 10:11 Home Medications Medication Instructions Recorded Confirmed Last Taken Type Pnv No.95/Ferrous Fum/Folic AC 1 each PO DAILY #30 tablet 12/14/18 2 Days Ago Rx [ Vitamin Tablet] ~06/12/19 Active Meds: Active Medications Hydromorphone HCl (Dilaudid) 0.5 mg IV Q5M PRN PRN Reason: BREAK Stop: 07/29/19 23:00 Hydromorphone HCl (Dilaudid) 0.5 mg IV Q4H PRN PRN Reason: breakthrough pain > 7/10 Oxytocin/Sodium Chloride (Pitocin/Ns 20 Unit/1000ml Drip) 20 units in 1,000 mls @ 0 mls/hr IV TITR BERNIE Lactated Ringer's (Lactated Ringers) 1,000 mls @ 2,250 mls/hr IV PREOP BERNIE Stop: 07/30/19 11:27 Last Admin: 07/29/19 10:00 Dose: 2,250 mls/hr Documented by: Cefazolin Sodium (Ancef/Sterile Water 2 Gm/20 Ml) 2 gm in 20 mls @ 80 mls/hr IV PREOP NR; Protocol Stop: 07/29/19 12:30 Ondansetron HCl (Zofran) 4 mg IV Q8H PRN PRN Reason: Nausea And Vomiting Sodium Chloride (Sodium Chloride Flush Syringe 10 Ml) 10 ml IV PRN BERNIE Review of Systems All systems: negative - Vital Signs Vital signs: Vital Signs Pulse Pulse Ox 89 98 07/29/19 09:38 07/29/19 09:38 Temp Pulse Resp BP Pulse Ox 98.0 F 82 18 116/60 97 07/29/19 10:53 07/29/19 11:08 07/29/19 10:53 07/29/19 10:53 07/29/19 11:08 - Physical Exam Lungs: Positive: Normal air movement Abdomen: Positive: soft, distention. Negative: tenderness Deep Tendon Reflex Grade: Normal +2 - Obstetrical FHR: auscultation normal Results Result Diagrams: 07/29/19 10:00 Abnormal lab results 07/29/19 Range/Units 10:00 MCH 27 L (28-32) pg All other labs normal. Assessment and Plan - Patient Problems (1) 39 weeks gestation of Current Visit: No Status: Acute (2) Previous delivery affecting , antepartum Current Visit: Yes Status: Acute Plan to address problem: For elective repeat . All risks inherent in a delivery were discussed and patient's questions were fully answered and she gave her consent for surgery.
[2019-07-29] MEDS ORDERED: ONDANSETRON 4 MG/2 ML INJ ONE (13:23)
[2019-07-29] MEDS ORDERED: KETOROLAC 30 MG/1 ML INJ ONE (13:23)
[2019-07-29] MEDS ORDERED: NALOXONE 0.4 MG/1 ML INJ IV PRN (13:25)
[2019-07-29] MEDS ORDERED: LANOLIN/ZINC/DIMETHICONE (LANSINOH) 7 GM TP PRN (13:25)
[2019-07-29] MEDS ORDERED: WITCH HAZEL/ GLYCERIN PAD TP PRN (13:25)
[2019-07-29] MEDS ORDERED: ACETAMINOPHEN 325 MG TAB PO PRN (13:25)
[2019-07-29] MEDS ORDERED: MORPHINE 4 MG/1 ML INJ IV PRN (13:25)
[2019-07-29] MEDS ORDERED: KETOROLAC 30 MG/1 ML INJ IV PRN (13:25)
--- NOTE | 2019-07-29 13:36 | Post Anesthesia Evaluation ---
- Post Anesthesia Evaluation Patient Participated: Yes Airway Patent: Yes Stable Respiratory Function: Yes Nausea/Vomiting: No Temp > 96.8F: Yes Pain Manageable: Yes Adequeate Hydration: Yes Anesthesia Complications: No Block Receding Appropriately: Yes Patient on Ventilator: No
--- NOTE | 2019-07-29 13:37 | Operative Report ---
Operative Report Operative Report: Date of surgery: 07/29/2019 Preoperative diagnoses: Term , previous section: Postoperative diagnoses: The same plus peritoneal adhesions Operation: Lower segment transverse delivery, lysis of adhesions Surgeon:Bro Astudillo MD Custom Grinder: Sharon YORK CRNA Anesthesia: Spinal block Estimated blood loss: 800 mL Complications: None Findings: There was a live AB girl in cephalic presentation. The amniotic fluid was meconium-stained. The fallopian tubes and ovaries were grossly normal. The uterus was studded with multiple peanut sized subserosal fibroids; 5 such fibroids were accounted. The inferior edge of the greater omentum was adherent to the anterior parietal peritoneum fci between the navel and the symphysis pubis. Procedure in detail: The patient was taken to the operating room and given a spinal block. Patient was placed in the straight supine position and a Paige catheter was inserted. The patient was prepped in the abdomen. The drapes were placed. A timeout was done. With the go ahead from the trade economist, a Pfannenstiel incision was made. This incision was carried across the subcutaneous layer to the fascia which was also divided transversely. The recti abdominis muscle flaps were stripped from the fascia using a combination of blunt and sharp dissections. The muscles were in the midline to gain access to the anterior parietal peritoneum which was divided after excluding any underlying viscera. The access to the peritoneal cavity was then widened by manual stretching. The omental adhesion described above was divided at this point to allow access to the operative field. The cut edges of these band of adhesion was carefully examined and hemostasis was achieved by cauterization with the Bovie. The bladder blade was applied. The utero vesicle peritoneal flap was divided transversely allowing the bladder to be displaced caudally. The uterine incision was placed in the lower segment transversely. The uterine incision was carried to the decidual layer. The uterine incision was extended on both sides using the bandage scissors. The amniotic sac was ruptured with clear fluid. The head was lifted out of the false maternal pelvis and delivered through the incision using fundal pressure. The airways were bulb suctioned beginning with the mouth. Continuing fundal pressure combined with traction on the mandibular processes of the jaw delivered the rest of the baby. The umb ilical cord was double clamped and divided. The baby was carefully transferred to the pediatric team. The placenta was manually removed from the uterine cavity. The uterine cavity was explored and was empty of any placental remnants. The uterine incision was repaired in 2 layers with #1 Vicryl. The surgical line on the uterus was hemostatic. Blood and clots were cleared from the peritoneal cavity. The anterior parietal peritoneum was repaired with #1 Vicryl. The fascia was repaired with #1 Vicryl. The subcutaneous layer was made hemostatic using the Bovie before the skin was closed subcuticularly with 4-0 Vicryl. There were no complications. The estimated blood loss was 800 mL. All sponges and instrument counts were correct. Patient was safely transferred to the recovery room.
[2019-07-29] MEDS: ceFAZolin/NS 1 GM/50 ML 1 GM/50 ML BAG IV SCH (17:58)
[2019-07-30] MEDS: IBUPROFEN 800 MG TAB PO PRN ×4 (00:38→19:10)
[2019-07-30] MEDS: HYDROcodone/ACETAMINOPHEN 5-325 MG TAB PO PRN ×5 (00:39→19:10)
[2019-07-30 01:04] LABS: Hematocrit 34.4 % (30.3-42.9); Hemoglobin 11.4 gm/dl (10.1-14.3)
[2019-07-30] MEDS: ceFAZolin/NS 1 GM/50 ML 1 GM/50 ML BAG IV SCH (02:10)
[2019-07-30] MEDS: FERROUS SULFATE 325 MG TAB PO SCH (09:48)
[2019-07-30] MEDS: PRENATAL VIT27-FE FUMARATE-FOLIC ACID VIT TAB PO SCH (09:48)
--- NOTE | 2019-07-30 20:26 | Progress Note ---
Assessment and Plan A: POD#1 s/p Repeat C/S Pain well controlled VSS Stable P: Routine PP/PO care Anticipate discharge home in 24-48 hours Subjective - Subjective Date of service: 07/30/19 Principal diagnosis: Repeat c/s Patient reports: appetite normal, voiding normally, pain well controlled, flatus, ambulating normally, no bowel movement [place]: doing well Objective - Vital Signs Latest vital signs: Vital Signs Temp Pulse Resp BP BP Pulse Ox 07/30/19 15:28 99.0 F 89 20 121/75 97 07/30/19 12:08 98.1 F 94 H 20 126/79 98 07/30/19 07:38 98.2 F 71 16 110/64 98 07/30/19 04:30 98.7 F 77 18 109/78 07/30/19 00:00 98.7 F 74 18 114/78 Intake and Output 07/30/19 07/30/19 07/30/19 07:59 15:59 23:59 Intake Total 200 320 Output Total 1600 700 Balance -1400 -380 Intake: Oral 200 320 Output: Urine 1600 700 Indwelling Catheter 800 Void 800 700 Other: Total, Intake Amount 200 200 Total, Output Amount 800 700 # Voids Void 1 1 - Exam Breasts: Present: normal Cardiovascular: Present: Regular rate, Normal S1, Normal S2, No murmurs Lungs: Present: Clear to auscultation, Normal air movement Abdomen: Present: normal appearance, normal bowel sounds Vulva: both: normal Uterus: Present: firm, fundal height at umbilicus Extremities: Present: normal Deep Tendon Reflex Grade: Normal +2 Incision: Present: normal, dry, intact, dressed (Pressure dressing CDI)
[2019-07-30] MEDS ORDERED: SIMETHICONE 80 MG CHEW TAB PO PRN (20:35)
[2019-07-31] MEDS: IBUPROFEN 800 MG TAB PO PRN ×3 (02:36→20:43)
--- NOTE | 2019-07-31 09:31 | Progress Note ---
Assessment and Plan - Patient Problems (1) S/P repeat low transverse Current Visit: Yes Status: Acute Plan to address problem: Continue routine PP orders Clear liquid diet until passing flatus Ambulate in hallways Anticipate d/c home in 24-48 hrs Subjective - Subjective Date of service: 07/31/19 Principal diagnosis: Repeat c/s Interval history: See admission H & P; OB operative note and PP progress notes Patient reports: appetite normal, voiding normally, pain well controlled (with medications), ambulating normally, no flatus (Instructed to refrain from eating solid foods until passing gas. Return to clear liquid diet, increase water intake and ambulate in hallways. Verbalized understanding.), no bowel movement [place]: doing well, bottle feeding (and ) Objective - Vital Signs Latest vital signs: Vital Signs Temp Pulse Resp BP BP Pulse Ox 07/31/19 08:30 99.1 F 88 18 126/67 07/31/19 00:00 98.7 F 66 18 112/72 07/30/19 15:28 99.0 F 89 20 121/75 97 07/30/19 12:08 98.1 F 94 H 20 126/79 98 Intake and Output 07/30/19 07/31/19 07/31/19 23:59 07:59 15:59 Intake Total 300 300 120 Balance 300 300 120 Intake: Oral 120 Intake, Free Water 300 300 Other: Total, Intake Amount 120 # Voids Void 1 1 1 - Exam Breasts: Present: normal Cardiovascular: Present: Regular rate Lungs: Present: Normal air movement Abdomen: Present: soft, tenderness Uterus: Present: firm, fundal height below umbilicus (U-1) Extremities: Present: edema (Bilat ankles/feet) Deep Tendon Reflex Grade: Normal +2 Incision: Present: dressed (no shadow drainage or bleeding noted)
[2019-07-31] MEDS: FERROUS SULFATE 325 MG TAB PO SCH (12:45)
[2019-07-31] MEDS: HYDROcodone/ACETAMINOPHEN 5-325 MG TAB PO PRN (12:45)
[2019-07-31] MEDS: PRENATAL VIT27-FE FUMARATE-FOLIC ACID VIT TAB PO SCH (12:45)
[2019-08-01] MEDS: HYDROcodone/ACETAMINOPHEN 5-325 MG TAB PO PRN (02:13)
[2019-08-01] MEDS: IBUPROFEN 800 MG TAB PO PRN ×2 (04:56→20:39)
[2019-08-01] MEDS: FERROUS SULFATE 325 MG TAB PO SCH (11:00)
[2019-08-01] MEDS: PRENATAL VIT27-FE FUMARATE-FOLIC ACID VIT TAB PO SCH (11:00)
[2019-08-01] MEDS ORDERED: guaiFENesin 100 MG/5 ML ORAL LIQD PO PRN (12:13)
--- NOTE | 2019-08-01 12:21 | Progress Note ---
Assessment and Plan A: /postop day 3 S/P repeat section. Cough. P: Chest x-ray. Cough syrup. Use incentive spirometer. Flu swab. Encouraged ambulation and warm liquids to help with passing gas. Continue current management. Subjective - Subjective Date of service: 08/01/19 Principal diagnosis: /postop day 3 S/P repeat LTCS. Interval history: /postop day 3 S/P repeat low transverse section. Patient reports cough, started today. Denies shortness of breath, chest pain or dizziness. Patient reports sputum is white to pale yellow in color. Patient reports small amount of lochia. She is voiding without difficulty, ambulating well, passing gas, and tolerating a regular diet. No BM yet. Patient denies headache, abdominal pain, leg pain, heavy vaginal bleeding. Patient reports: appetite normal, voiding normally, pain well controlled, flatus, ambulating normally, other (cough), no dizzy ambulation, no bowel movement, no nauseated : doing well Objective - Vital Signs Latest vital signs: Vital Signs Temp Pulse Resp BP BP Pulse Ox 08/01/19 08:00 97.7 F 82 20 116/76 97 07/31/19 23:50 98.5 F 78 18 107/45 98 07/31/19 16:15 98.5 F 92 H 18 137/90 Intake and Output 07/31/19 08/01/19 08/01/19 23:59 07:59 15:59 Intake Total 840 480 200 Balance 840 480 200 Intake: Oral 840 200 Intake, Free Water 480 Other: Total, Intake Amount 240 200 # Voids Void 1 2 1 - Exam Cardiovascular: Present: Regular rate, Normal S1, Normal S2, No murmurs Lungs: Present: Clear to auscultation Abdomen: Present: normal appearance, soft, normal bowel sounds. Absent: distention, tenderness, guarding, rigidity Uterus: Present: normal, firm, fundal height below umbilicus. Absent: bogginess, tenderness Extremities: Present: normal, edema (mild pedal edema bilaterally). Absent: tenderness Incision: Present: normal, dry, intact
--- NOTE | 2019-08-01 13:11 | XRay Report ---
CHEST 2 VIEWS INDICATION / CLINICAL INFORMATION: cough. COMPARISON: None available. FINDINGS: SUPPORT DEVICES: None. HEART / MEDIASTINUM: No significant abnormality. LUNGS / PLEURA: No significant pulmonary or pleural abnormality. No pneumothorax. ADDITIONAL FINDINGS: No significant additional findings. IMPRESSION: 1. No acute findings. Signer Name: Dae Bourne MD Signed: 08/01/2019 1:07 PM Workstation Name: [id number]
[2019-08-02] MEDS: IBUPROFEN 800 MG TAB PO PRN ×3 (06:33→18:44)
[2019-08-02] MEDS: FERROUS SULFATE 325 MG TAB PO SCH (10:00)
[2019-08-02] MEDS: PRENATAL VIT27-FE FUMARATE-FOLIC ACID VIT TAB PO SCH (10:00)
--- NOTE | 2019-08-02 14:26 | Progress Note ---
Assessment and Plan A: /postop day 4 S/P repeat LTCS. Persistent cough (negative CXR and negative flu swab). P: Hospitalist MD consult (spoke with Dr. Price regarding this patient). Subjective - Subjective Date of service: 08/02/19 Principal diagnosis: /postop day 4 S/P repeat LTCS. Interval history: /postop day 4 S/P repeat low transverse section. Patient states her cough has not resolved and that cough medication is not helping. Clear sputum. Patient denies chest pain, shortness of breath, fatigue, dizziness, headache, nasal congestion or drainage, body aches, fever, chills, abdominal pain, leg pain, or heavy bleeding. Voiding without difficulty, passing gas, tolerating a regular diet, ambulating well. Patient reports: appetite normal, voiding normally, pain well controlled, flatus, bowel movement, ambulating normally, no dizzy ambulation, no nauseated [place]: doing well Objective - Vital Signs Latest vital signs: Vital Signs Temp Pulse Resp BP BP Pulse Ox 08/02/19 08:30 98.7 F 86 18 126/81 99 08/01/19 23:30 98.7 F 66 16 120/78 08/01/19 15:58 98.1 F 79 20 124/74 100 Intake and Output 08/01/19 08/02/19 08/02/19 23:59 07:59 15:59 Intake Total 660 200 Balance 660 200 Intake: Oral 360 200 Intake, Free Water 300 Other: Total, Intake Amount 360 200 # Voids Void 1 1 - Exam Cardiovascular: Present: Regular rate, Normal S1, Normal S2 Lungs: Present: Other (rhonchi heard) Abdomen: Present: normal appearance, soft, normal bowel sounds. Absent: distention, tenderness, guarding, rigidity Uterus: Present: normal, firm, fundal height below umbilicus. Absent: bogginess, tenderness Extremities: Present: normal, edema. Absent: tenderness Incision: Present: normal, dry, intact
--- NOTE | 2019-08-03 07:26 | Consultation ---
History of Present Illness - Reason for Consult Consult date: 08/02/19 Medical management Requesting physician: TO RIZVI - History of Present Illness /postop day 4 S/P repeat low transverse section. Patient states her cough has not resolved and that cough medication is not helping. Clear sputum. Patient denies chest pain, shortness of breath, fatigue, dizziness, headache, nasal congestion or drainage, body aches, fever, chills, abdominal pain, leg pain, or heavy bleeding. No wheezing. Past History Past Medical History: No medical history Past Surgical History: Social history: lives with family, full code Family history: hypertension Medications and Allergies Allergies Allergy/AdvReac Type Severity Reaction Status Date / Time No Known Allergies Allergy Verified 07/29/19 10:11 Home Medications Medication Instructions Recorded Confirmed Last Taken Type Pnv No.95/Ferrous Fum/Folic AC 1 each PO DAILY #30 tablet 12/14/18 08/01/19 2 Days Ago Rx [ Vitamin Tablet] ~06/12/19 HYDROcodone/APAP 5-325 [[place] 1 - 2 each PO Q4HR PRN #30 tablet 07/29/19 Unknown Rx 5/325] Active Meds: Active Medications Acetaminophen (Tylenol) 650 mg PO Q4H PRN PRN Reason: Fever >100.5/RAMSAY Acetaminophen/Hydrocodone Bitart ([place] 5/325) 2 each PO Q6H PRN PRN Reason: Pain, Moderate (4-6) Last Admin: 08/01/19 02:13 Dose: 2 each Documented by: Ferrous Sulfate (Feosol) 325 mg PO QDAY BERNIE Last Admin: 08/02/19 10:00 Dose: 325 mg Documented by: Guaifenesin (Robitussin) 200 mg PO Q4H PRN PRN Reason: Cough Last Admin: 08/01/19 20:39 Dose: 200 mg Documented by: Oxytocin/Sodium Chloride (Pitocin/Ns 20 Unit/1000ml Drip) 20 units in 1,000 mls @ 250 mls/hr IV DIRECT BERNIE Ibuprofen (Ibuprofen) 800 mg PO Q6H PRN PRN Reason: Pain, Mild (1-3) Last Admin: 08/02/19 18:44 Dose: 800 mg Documented by: Ketorolac Tromethamine (Toradol) 30 mg IV Q6H PRN PRN Reason: Pain, Moderate (4-6) Stop: 08/03/19 13:24 Last Admin: 07/29/19 21:07 Dose: 30 mg Documented by: Morphine Sulfate (Morphine) 4 mg IV Q4H PRN PRN Reason: Pain , Severe (7-10) Last Admin: 07/29/19 17:59 Dose: 4 mg Documented by: Multi-Ingredient Ointment (Lansinoh) 1 applic TP PRN PRN PRN Reason: dryness/cracking Last Admin: 08/01/19 11:00 Dose: 1 applic Documented by: Multivitamins/Iron/Calcium ( Vitamin) 1 each PO QDAY BERNIE Last Admin: 08/02/19 10:00 Dose: 1 each Documented by: Naloxone HCl (Naloxone) 0.1 mg IV Q2MIN PRN PRN Reason: Res Rate </= 8 or 02 SAT < 92% Ondansetron HCl (Zofran) 4 mg IV Q8H PRN PRN Reason: Nausea And Vomiting Simethicone (Mylicon) 80 mg PO Q6H PRN PRN Reason: Gas pain Last Admin: 07/30/19 20:53 Dose: 80 mg Documented by: Witch Mónica/Glycerin (Tucks Pad) 1 each TP PRN PRN PRN Reason: Hemorrhoids/cleansing/soothing Review of Systems All systems: negative Respiratory: cough, cough with sputum, congestion Exam - Constitutional Vitals: Temp Pulse Resp BP Pulse Ox 98.7 F 79 18 120/74 97 08/03/19 04:00 08/03/19 04:00 08/03/19 04:00 08/03/19 04:00 08/02/19 16:17 General appearance: Present: no acute distress, well-nourished - EENT Eyes: Present: PERRL ENT: hearing intact, clear oral mucosa - Neck Neck: Present: supple, normal ROM - Respiratory Respiratory effort: normal Respiratory: bilateral: CTA - Cardiovascular Heart rate: 78 Rhythm: regular Heart Sounds: Present: S1 & S2. Absent: rub, click - Extremities Extremities: no ischemia, pulses intact, pulses symmetrical, No edema Peripheral Pulses: within normal limits - Abdominal General gastrointestinal: Present: soft, non-tender, non-distended, normal bowel sounds Female genitourinary: Present: normal - Rectal Rectal Exam: deferred - Integumentary Integumentary: Present: clear, warm, dry - Musculoskeletal Musculoskeletal: gait normal, strength equal bilaterally - Psychiatric Psychiatric: appropriate mood/affect, intact judgment & insight - Neurologic Neurologic: CNII-XII intact, moves all extremities Results - Labs CBC & Chem 7: 07/30/19 00:52 - Imaging and Cardiology Chest x-ray: report reviewed (NAF) Assessment and Plan - Patient Problems (1) Acute bronchitis Current Visit: Yes Status: Acute Plan to address problem: Initiated on Ceftin 500 mg po q12 hrs for 8 days Should improbve F/u with PCP. Patient medically cleared to go home.
[2019-08-03] MEDS: HYDROcodone/ACETAMINOPHEN 5-325 MG TAB PO PRN (08:54)
[2019-08-03] MEDS: PRENATAL VIT27-FE FUMARATE-FOLIC ACID VIT TAB PO SCH (11:05)
[2019-08-03] MEDS: FERROUS SULFATE 325 MG TAB PO SCH (11:05)
--- NOTE | 2019-08-03 12:58 | Progress Note ---
Assessment and Plan - Patient Problems (1) S/P repeat low transverse Current Visit: Yes Status: Acute Plan to address problem: POD 5 - stable Discharge to home today Follow up at [facility] as needed or in 1 week for incision check (2) Single live Current Visit: Yes Status: Acute (3) Coughing Current Visit: Yes Status: Acute Plan to address problem: Improving Co-managed w/Internal Medicine Continue antibiotics therapy Subjective - Subjective Date of service: 08/03/19 Principal diagnosis: POD #5; s/p Repeat LTCS Interval history: see H&P, Operative Report, PP/[employer] Progress Notes and Internal Medicine Consult Note Patient reports: appetite normal, voiding normally, pain well controlled, flatus, ambulating normally, no dizzy ambulation : doing well Objective - Vital Signs Latest vital signs: Vital Signs Temp Pulse Resp BP BP Pulse Ox 08/03/19 08:52 97.6 F 69 18 116/53 100 08/03/19 04:00 98.7 F 79 18 120/74 08/02/19 23:30 98.7 F 78 16 124/78 08/02/19 19:30 98.7 F 74 18 123/72 08/02/19 16:17 98.6 F 87 18 129/86 97 Intake and Output 08/02/19 08/03/19 08/03/19 23:59 07:59 15:59 Intake Total 200 200 Balance 200 200 Intake: Oral 200 200 Other: Total, Intake Amount 200 200 # Voids Void 1 1 - Exam Cardiovascular: Present: Regular rate Lungs: Present: Clear to auscultation, Normal air movement Abdomen: Present: normal appearance, soft Vulva: both: normal Uterus: Present: normal, firm, fundal height below umbilicus Extremities: Present: normal Incision: Present: normal, dry, intact Comments: steri strips in place
--- NOTE | 2019-08-03 13:02 | Discharge Summary ---
Providers - Providers Date of Admission: 07/29/19 08:47 Date of discharge: 08/03/19 Attending physician: JAKOB FREITAS MD 08/02/19 14:20 Consult to Physician [CONS] Urgent Comment: Consulting Provider: AINSLEY BENAVIDEZ Physician Instructions: Reason For Exam: cough, 3 days S/P LTCS Primary care physician: CHRISTIANO OLVERA MD Hospitalization Reason for admission: section, IUP at term Delivery: Procedure: repeat low transverse Episiotomy: none Laceration: none Incision: normal, dry, intact, other (steri strips in place) Other procedures: none complications: other (coughing) Discharge diagnosis: IUP at term delivered [place] baby: female Hospital course: Complicated by coughing. On antibiotics therapy. Now improving. Condition at discharge: Stable Disposition: DC- TO HOME OR SELFCARE - Discharge Diagnoses (1) S/P repeat low transverse Status: Acute (2) Single live Status: Acute (3) Coughing Status: Acute Comment: Continue antibiotics therapy Plan - Discharge Medications Prescriptions: Cefuroxime Axetil [Ceftin] 500 mg PO Q12H #16 ml Ibuprofen [Motrin 800 MG tab] 800 mg PO Q6H PRN #30 tablet PRN Reason: Pain, Mild (1-3) HYDROcodone/APAP 5-325 [[place] 5/325] 1 - 2 each PO Q4HR PRN #30 tablet PRN Reason: Pain - Provider Discharge Summary Activity: routine, no sex for 6 weeks, no heavy lifting 4 weeks, no strenuous exercise Diet: routine Instructions: routine Additional instructions: [] Smoking cessation referral if applicable(refer to patient education folder for contact #) [] Refer to [facility]'s [facility] Booklet Call your doctor immediately for: * Fever > 100.5 * Heavy vaginal bleeding ( >1 pad per hour) * Severe persistent headache * Shortness of breath * Reddened, hot, painful area to leg or breast * Drainage or odor from incision. * Keep incision clean and dry at all times and follow doctor's instructions regarding bathing/showering - Follow up plan Follow up: CHRISTIANO OLVERA MD [Primary Care Provider] - 7 Days (Follow up at [facility] as needed or in 1 week for incision check) Forms: [facility] Discharge Summary
[2019-08-03] MEDS: IBUPROFEN 800 MG TAB PO PRN (15:32)
[2019-08-03] MEDS ORDERED: FLU VACC QUAD 2019-20 (3 YR UP)/PF 60 MCG/0.5 ML SYRINGE IM ONE (16:00)
[2019-08-03 18:09] VITALS: BP 126/65
== END 2019-08-03 17:00 | disposition home or self-care (01) | DRG 766 ==
LOC: LD 08:47 → APU 08:57 → OB 15:08
PROVIDERS: ADMIT Obstetrics & Gynecology; ATTEND Obstetrics & Gynecology
PROC: 10D00Z1 Extraction of Products of Conception, Low, Open Approach (ICD-10-PCS; principal; 2019-07-29)
DX: O34.211 Maternal care for low transverse scar from previous cesarean delivery (principal); O99.52 Diseases of the respiratory system complicating childbirth; J20.9 Acute bronchitis, unspecified; Z37.0 Single live birth; Z3A.39 39 weeks gestation of pregnancy
CPT/HCPCS: 36415; 71046; 85014; 85018; 85025; 86850; 86900; 86901; 87400; 90686; G0378; A6250; J0690; J1885; J2270; J2405; J2590; J2765; J3490; J7120